=== PATIENT | female | born 1960 | race Caucasian/White ===

== ENCOUNTER 2024-01-23 19:51 | Inpatient (IN) | payer BC, SELFPAY ==
[2024-01-23] VITALS (7 sets, daily range): BP systolic 137–183; BP diastolic 69–83; BMI 26.3; BMI 24.8
[2024-01-23 17:19] LABS: % Basophils 0.5 % (0-2); % Eosinophils 0.6 % (0-6); % Immature Granulocytes 1.3 % (0-0.5); % Lymphocytes 25.5 % (20.5-51.1); % Monocytes 13.8 % (1.7-9.3); % Neutrophils 58.3 % (42.2-75.2); Absolute Eosinophils 0.1 10^3/uL (0-0.7); Absolute Immature Granulocytes 0.1 10^3/uL (0-0.05); Absolute Lymphocytes 2.1 10^3/uL (1.2-3.4); Absolute Monocytes 1.1 10^3/uL (0.1-0.6); Absolute Neutrophils 4.8 10^3/uL (1.4-6.5); Hematocrit 34.5 % (37.0-47.0); Hemoglobin 12.3 g/dL (12.0-16.0); Mean Corp Hgb Conc. 35.7 g/dL (33.0-37.0); Mean Corpuscular Hgb 32.5 pg (27.0-31.0); Mean Corpuscular Volume 91.3 fL (81.0-99.0); Mean Platelet Volume 9.2 fL (7.4-10.4); Nucleated Red Blood Cells % 0 %; Platelet Count 200 10^3/uL (130-400); Red Blood Cell Count 3.78 10^6/uL (4.20-5.40); Red Cell Dist. Width 12.8 % (11.5-14.5); White Blood Cell Count 8.2 10^3/uL (4.8-10.8)
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
[2024-01-23 17:27] LABS: Glucose - Point of Care 52 mg/dl (70-99)
[2024-01-23] MEDS: DEXTROSE 50% SYRINGE 12.5 GRAMS IV (17:28)
[2024-01-23 17:32] LABS: ALT (SGPT) 26 U/L (0-35); AST (SGOT) 41 U/L (14-36); Albumin 4.1 g/dl (3.5-5.0); Alcohol 138 mg/dl; Alkaline Phosphatase 112 U/L (38-126); Blood Urea Nitrogen 13 mg/dl (7-17); Calcium 9.1 mg/dl (8.4-10.2); Carbon Dioxide 22 mmol/L (22-30); Chloride 95 mmol/L (98-107); Estimated Creatinine Clearance 84 ml/min; Glucose 85 mg/dl (70-99); Potassium 3.7 mmol/L (3.5-5.1); Sodium 134 mmol/L (135-145); Total Bilirubin 0.4 mg/dl (0.2-1.3); Total Protein 6.7 g/dl (6.3-8.2); eGFR > 60.00
[2024-01-23] MEDS: D5/0.9% SODIUM CHLORIDE 1000 IV (17:52)
[2024-01-23 18:00] LABS: Glucose - Point of Care 100 mg/dl (70-99)
[2024-01-23 18:21] LABS: Troponin I < 0.012 ng/ml
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
[2024-01-23 20:42] LABS: TSH Reflex To Free T4 3.78 uIU/ml (0.47-4.68)
[2024-01-23 21:20] LABS: Glucose - Point of Care 163 mg/dl (70-99)
[2024-01-23] MEDS: WELLBUTRIN SR (12 hour sustained release) 150 MG PO (22:38)
[2024-01-23] MEDS: MYSOLINE 50 MG PO (22:38)
[2024-01-23] MEDS: DESYREL 50 MG PO (22:38)
[2024-01-23] MEDS: TYLENOL 650 MG PO (23:11)
[2024-01-24] VITALS (8 sets, daily range): BP systolic 121–188; BP diastolic 50–90
--- NOTE | 2024-01-24 00:55 | PTCARENOTE ---
Patient arrived from the ED via stretcher at approximately 2100. Patient ambulated from stretcher to bed x1 assist. Patient AAOx3. VSS as documented. Assessment as documented. Patient oriented to room. Bed in lowest position. Call rivera within reach.
[2024-01-24] MEDS: D5/0.9% SODIUM CHLORIDE 1000 IV ×2 (02:55→09:04)
[2024-01-24] MEDS: TYLENOL 650 MG PO ×2 (06:05→20:20)
[2024-01-24 07:10] LABS: Blood Urea Nitrogen 9 mg/dl (7-17); Calcium 8.4 mg/dl (8.4-10.2); Carbon Dioxide 30 mmol/L (22-30); Chloride 95 mmol/L (98-107); Estimated Creatinine Clearance 75 ml/min; Glucose 333 mg/dl (70-99); Potassium 4.3 mmol/L (3.5-5.1); Sodium 128 mmol/L (135-145); eGFR > 60.00
[2024-01-24 07:45] LABS: Glucose - Point of Care 345 mg/dl (70-99)
[2024-01-24] MEDS: PT'S OWN INSULIN PUMP - HumaLOG 3.33000000000000007 UNIT SC (08:59)
[2024-01-24] MEDS: LIPITOR 20 MG PO (09:02)
[2024-01-24] MEDS: ZOLOFT 200 MG PO (09:02)
[2024-01-24] MEDS: INDERAL LA 160 MG PO (09:02)
[2024-01-24] MEDS: VISBIOME 1 CAP PO (09:02)
[2024-01-24] MEDS: COZAAR 100 MG PO (09:03)
[2024-01-24] MEDS: WELLBUTRIN SR (12 hour sustained release) 150 MG PO ×2 (09:03→20:12)
[2024-01-24] MEDS: THERAGRAN 1 TABLET PO (09:03)
[2024-01-24 09:24] LABS: Glycohemoglobin (HgbA1c) 6.6 % (4.0-5.6)
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
[2024-01-24 11:01] LABS: Glucose - Point of Care 312 mg/dl (70-99)
[2024-01-24] MEDS: PT'S OWN INSULIN PUMP - HumaLOG 0.330000000000000016 UNIT SC (12:30)
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
[2024-01-24 14:18] LABS: Glucose - Point of Care 146 mg/dl (70-99)
--- NOTE | 2024-01-24 15:02 | CM ---
Addendum entered by Meggan Kaufman 01/24/24 15:09:
CM consult for AD literature. Literature provided.
Original Note:
Initial assessment completed with patient with in room. Patient lives with her in a 1 story home plus basement, laundry in basement, 2 steps to enter, Patient has an insulin pump and a continuous glucose monitor, no in-home services
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 Patient works at . Pharmacy is [facility] on [address] in [place] and PCP is Dr. Larissa Smith. Anticipate no needs at discharge. Patient in agreement.
[2024-01-24 15:05] LABS: Glucose - Point of Care 184 mg/dl (70-99)
[2024-01-24 17:34] LABS: Glucose - Point of Care 214 mg/dl (70-99)
[2024-01-24] MEDS: ULTRAM 25 MG PO (17:34)
[2024-01-24] MEDS: LOVENOX 40 MG SC (17:34)
[2024-01-24] MEDS: PT'S OWN INSULIN PUMP - HumaLOG 2.5 UNIT SC (17:46)
[2024-01-24 18:50] LABS: Osmolality Urine 304 mOsm/kg (300-900)
[2024-01-24 21:34] LABS: Glucose - Point of Care 200 mg/dl (70-99)
[2024-01-24] MEDS: DESYREL 50 MG PO (21:39)
[2024-01-24] MEDS: MYSOLINE 50 MG PO (21:39)
[2024-01-24] MEDS: PT'S OWN INSULIN PUMP - HumaLOG 1.01000000000000001 UNIT SC (21:53)
[2024-01-24] MEDS: LIDOCAINE 4% PATCH 1 PATCH TOPICAL (21:59)
[2024-01-24] MEDS: MOTRIN 400 MG PO (21:59)
[2024-01-24 23:27] LABS: Glucose - Point of Care 150 mg/dl (70-99)
--- NOTE | 2024-01-24 23:35 | PTCARENOTE ---
Addendum entered by Sejal Philippe RN 01/25/24 06:32:
0614 BSG 125 w/ hospital monitor. Pt's insulin pump reads 115
Original Note:
Pt's spouse called nurses station to inform us that pt's insulin pump alarmed a reading in the 50s. RN checked bsg w/ hospital glucose monitor resulting 150. Pt's insulin pump resulted 70. Patient states insulin pump checks glucose Q8H. Patient's
pump administered insulin around 2200. This RN will recheck at 0600.
[2024-01-25 03:49] VITALS: BP 149/73
[2024-01-25] MEDS: ULTRAM 25 MG PO (06:17)
[2024-01-25 06:18] LABS: Glucose - Point of Care 125 mg/dl (70-99)
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
[2024-01-25 07:27] LABS: % Basophils 0.6 % (0-2); % Eosinophils 2.5 % (0-6); % Immature Granulocytes 0.3 % (0-0.5); % Lymphocytes 30.2 % (20.5-51.1); % Monocytes 10.4 % (1.7-9.3); Absolute Eosinophils 0.2 10^3/uL (0-0.7); Absolute Monocytes 0.7 10^3/uL (0.1-0.6); Absolute Neutrophils 3.7 10^3/uL (1.4-6.5); Hematocrit 33.3 % (37.0-47.0); Hemoglobin 11.6 g/dL (12.0-16.0); Mean Corp Hgb Conc. 34.8 g/dL (33.0-37.0); Mean Corpuscular Hgb 32.2 pg (27.0-31.0); Mean Corpuscular Volume 92.5 fL (81.0-99.0); Mean Platelet Volume 9.6 fL (7.4-10.4); Nucleated Red Blood Cells % 0 %; Platelet Count 163 10^3/uL (130-400); Red Cell Dist. Width 12.6 % (11.5-14.5); White Blood Cell Count 6.5 10^3/uL (4.8-10.8)
[2024-01-25 07:30] VITALS: BP 178/75
[2024-01-25 07:35] LABS: Glucose - Point of Care 142 mg/dl (70-99)
[2024-01-25 08:06] LABS: Blood Urea Nitrogen 8 mg/dl (7-17); Calcium 8.9 mg/dl (8.4-10.2); Carbon Dioxide 32 mmol/L (22-30); Chloride 94 mmol/L (98-107); Estimated Creatinine Clearance 75 ml/min; Glucose 121 mg/dl (70-99); Potassium 3.8 mmol/L (3.5-5.1); Sodium 131 mmol/L (135-145); eGFR > 60.00
[2024-01-25] MEDS: LIPITOR 20 MG PO (09:54)
[2024-01-25] MEDS: COZAAR 100 MG PO (09:54)
[2024-01-25] MEDS: WELLBUTRIN SR (12 hour sustained release) 150 MG PO (09:54)
[2024-01-25] MEDS: ZOLOFT 200 MG PO (09:54)
[2024-01-25] MEDS: VISBIOME 1 CAP PO (09:56)
[2024-01-25] MEDS: THERAGRAN 1 TABLET PO (09:56)
[2024-01-25] MEDS: LIDOCAINE 4% PATCH 1 PATCH TOPICAL (09:56)
[2024-01-25] MEDS: INDERAL LA 160 MG PO (09:56)
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
[2024-01-25 10:08] LABS: Glucose - Point of Care 121 mg/dl (70-99)
[2024-01-25] MEDS: PT'S OWN INSULIN PUMP - HumaLOG 2.33000000000000007 UNIT SC (11:33)
[2024-01-25 11:51] VITALS: BP 157/82
[2024-01-25 13:22] LABS: Glucose - Point of Care 263 mg/dl (70-99)
[2024-01-25] MEDS: PT'S OWN INSULIN PUMP - HumaLOG 4.42999999999999972 UNIT SC (14:05)
--- NOTE | 2024-01-25 14:12 | W.DS.TRANS ---
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
-
Discharge Instructions:
Discharge Diagnosis/Procedures Syncopal, near drawing episode.
Aortic stenosis
IDDM
HTN
Essential tremor.
Diet Diabetic, Carb Controlled
Instructions:
Stand-Alone Forms: Return to Work
Changes to Home Medications: Yes
Discharge Medications:
DC Medications w/original date entered in [employer]
losartan 50 mg tablet 100 mg PO DAILY 07/30/15
Lactobac no.2-Bifidobac no.1-S. thermo 112.5 billion cell capsule (Visbiome) 1 cap PO DAILY 03/08/17
sertraline 100 mg tablet 200 mg PO DAILY 03/08/17
trazodone 50 mg tablet 50 mg PO HS 03/08/17
multivitamin 1 tab PO DAILY 05/21/22
Patient Own Insulin Pump 0 unit SC .VIA PUMP 01/23/24
atorvastatin 20 mg tablet (Lipitor) 20 mg PO DAILY 01/23/24
bupropion HCl 150 mg tablet,12 hr sustained-release (Wellbutrin SR) 150 mg PO BID 01/23/24
propranolol 160 mg capsule,24 hr,extended release 160 mg PO DAILY 01/23/24
acetaminophen 325 mg tablet 650 mg (2 x 325 mg) PO Q4HPRN PRN mild pain/ fever>100.5F #30 tabs 01/25/24
lidocaine 4 % topical patch 1 patch topical DAILY #15 ea 01/25/24
Home Medication Changes
Primidone discontinued
Pending Results: No
--- NOTE | 2024-01-25 14:21 | CM ---
Plan: discharge to home; no needs; will transport home
[2024-01-25 15:14] VITALS: BP 146/61
--- NOTE | 2024-01-25 15:43 | PTCARENOTE ---
Patient discharged home. Telemetry pack and IV removed by RN, this RN reviewed discharge instructions with patient and patient's spouse; both verbalized understanding. Patient dressed and gathered belongings independently in room, work note provided
per MD, patient ambulated down to car with spouse.
== END 2024-01-25 15:51 | disposition home or self-care (01) | DRG 637 ==
LOC: 2 NORTH 19:51
PROVIDERS: Emergency Medicine; Registered Nurse; ADMITTING PHYSICIAN Internal Medicine; ATTENDING PHYSICIAN Internal Medicine; CONSULT PHYSICIAN Internal Medicine Cardiovascular Disease; EMERGENCY PHYSICIAN Emergency Medicine; FAMILY PHYSICIAN Emergency Medicine; OTHER PHYSICIAN Psychiatry & Neurology Psychiatry
DX: E10.649 Type 1 diabetes mellitus with hypoglycemia without coma (principal); R09.2 Respiratory arrest; T75.1XXA Unspecified effects of drowning and nonfatal submersion, initial encounter; R55 Syncope and collapse; R23.0 Cyanosis; G25.0 Essential tremor; I10 Essential (primary) hypertension; E78.00 Pure hypercholesterolemia, unspecified; F32.A Depression, unspecified; I35.0 Nonrheumatic aortic (valve) stenosis; F10.90 Alcohol use, unspecified, uncomplicated; Y90.6 Blood alcohol level of 120-199 mg/100 ml; Y93.11 Activity, swimming; Y92.008 Other place in unspecified non-institutional (private) residence as the place of occurrence of the external cause; Z96.41 Presence of insulin pump (external) (internal); Z79.4 Long term (current) use of insulin; Z87.891 Personal history of nicotine dependence; Z91.52 Personal history of nonsuicidal self-harm
CPT/HCPCS: 70450; 71046; 71110; 80048; 80053; 82077; 82962; 83036; 83935; 84443; 84484; 85025; 93005; 93306; 93880; 96374; 99285

== ENCOUNTER → 2024-02-01 16:07 | Outpatient (REF) | payer BC, SELFPAY ==
[2024-02-01 16:42] LABS: D-Dimer 2.44 ug/mlFEU (0.00-0.50)
[2024-02-01 16:43] LABS: Blood Urea Nitrogen 14 mg/dl (7-17); Calcium 9.7 mg/dl (8.4-10.2); Carbon Dioxide 28 mmol/L (22-30); Chloride 100 mmol/L (98-107); Glucose 144 mg/dl (70-99); Potassium 4.1 mmol/L (3.5-5.1); Sodium 136 mmol/L (135-145); eGFR > 60.00
== END ==
LOC: REG 16:07
PROVIDERS: ATTENDING PHYSICIAN Emergency Medicine
DX: R06.02 Shortness of breath (principal); R07.89 Other chest pain; E87.1 Hypo-osmolality and hyponatremia
CPT/HCPCS: 36415; 80048; 85379

== ENCOUNTER → 2024-02-02 07:19 | Outpatient (REF) | payer BC, SELFPAY | LOC: RAD 07:19 | PROVIDERS: ATTENDING PHYSICIAN Emergency Medicine | DX: R06.02 Shortness of breath (principal); R07.89 Other chest pain; R79.89 Other specified abnormal findings of blood chemistry | CPT/HCPCS: 71275; Q9967 ==

== ENCOUNTER 2024-02-02 10:12 | Emergency (ER) | payer BC, SELFPAY ==
[2024-02-02 10:26] VITALS: BP 189/70
[2024-02-02 10:45] VITALS: BP 176/83
[2024-02-02 11:00] VITALS: BP 178/62
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
== END 2024-02-02 11:22 | disposition home or self-care (01) ==
LOC: EMR 10:12
PROVIDERS: EMERGENCY PHYSICIAN Emergency Medicine; FAMILY PHYSICIAN Emergency Medicine
DX: S22.41XA Multiple fractures of ribs, right side, initial encounter for closed fracture (principal); J90 Pleural effusion, not elsewhere classified; X58.XXXA Exposure to other specified factors, initial encounter; I10 Essential (primary) hypertension; E78.00 Pure hypercholesterolemia, unspecified; E11.9 Type 2 diabetes mellitus without complications; Z87.891 Personal history of nicotine dependence
CPT/HCPCS: 99285; 71275; Q9967

== ENCOUNTER → 2024-04-13 07:00 | Outpatient (REF) | payer BC, SELFPAY ==
[2024-04-13 10:27] LABS: Blood Urea Nitrogen 16 mg/dl (7-17); Calcium 9.9 mg/dl (8.4-10.2); Carbon Dioxide 33 mmol/L (22-30); Chloride 96 mmol/L (98-107); Glucose 99 mg/dl (70-99); HDL Cholesterol 102 mg/dl; LDL Cholesterol, Calculated 92 mg/dl; Sodium 139 mmol/L (135-145); Total Cholesterol 213 mg/dl (50-199); Triglyceride 98 mg/dl (10-149); Very Low Density Lipoprotein 19 mg/dl (0-30); eGFR > 60.00
== END ==
LOC: REG 07:00
PROVIDERS: ATTENDING PHYSICIAN Emergency Medicine
DX: Z00.00 Encounter for general adult medical examination without abnormal findings (principal); E78.5 Hyperlipidemia, unspecified; E10.69 Type 1 diabetes mellitus with other specified complication; I10 Essential (primary) hypertension
CPT/HCPCS: 36415; 80048; 80061

== ENCOUNTER → 2024-06-07 16:27 | Outpatient (REF) | payer BC, SELFPAY | LOC: RAD 16:27 | PROVIDERS: ATTENDING PHYSICIAN Internal Medicine Cardiovascular Disease; FAMILY PHYSICIAN Emergency Medicine | DX: I35.0 Nonrheumatic aortic (valve) stenosis (principal); Q23.81 Bicuspid aortic valve | CPT/HCPCS: 71250 ==

== ENCOUNTER 2024-06-23 21:50 | Emergency (ER) | payer BC, SELFPAY ==
[2024-06-23 21:59] VITALS: BMI 25.1
[2024-06-23 22:00] VITALS: BP 201/97; BP 212/83
[2024-06-23 22:18] LABS: % Basophils 0.4 % (0-2); % Eosinophils 0.9 % (0-6); % Immature Granulocytes 0.4 % (0-0.5); % Monocytes 14.4 % (1.7-9.3); % Neutrophils 51.9 % (42.2-75.2); Absolute Eosinophils 0.1 10^3/uL (0-0.7); Absolute Lymphocytes 2.9 10^3/uL (1.2-3.4); Absolute Monocytes 1.3 10^3/uL (0.1-0.6); Absolute Neutrophils 4.6 10^3/uL (1.4-6.5); Hematocrit 40.6 % (37.0-47.0); Hemoglobin 13.3 g/dL (12.0-16.0); Mean Corp Hgb Conc. 32.8 g/dL (33.0-37.0); Mean Corpuscular Hgb 32.3 pg (27.0-31.0); Mean Corpuscular Volume 98.5 fL (81.0-99.0); Mean Platelet Volume 9.4 fL (7.4-10.4); Nucleated Red Blood Cells % 0 %; Platelet Count 209 10^3/uL (130-400); Red Blood Cell Count 4.12 10^6/uL (4.20-5.40); Red Cell Dist. Width 13.2 % (11.5-14.5)
--- NOTE | 2024-06-23 22:26 | ED.GENMED ---
History of Present Illness
<Nasreen Mora MD, Resident - Last Filed: 06/24/24 02:52>
General
Chief Complaint: Fall
Source: patient and family
Time Seen by Provider: 06/23/24 22:15
History of Present Illness
History of Present Illness:
This is a 64-year-old female patient with past medical history of hypertension, hyperlipidemia, depression and NIDDM who presented to the ED with her after suffering a fall. Patient states that she was out with her at a restaurant
this evening when after having 2 martinis she decided to step out of the restaurant to vape. She then states that she will awoke on the ground and cannot recall a prior events to fall. As per , someone from the restaurant had noticed her on
the ground and informed him that he then brought patient to the ED hospital. Patient denies over drinking or having trouble walking at the time of examination. She denies any chest pain, palpitations, severe headache or vision changes.
History obtained mostly from and nurse due to patient being unable to recall the events of her fall.
Past History
<Nasreen Mora MD, Resident - Last Filed: 06/24/24 02:52>
Past History
ED Past Medical History: HTN, Hypercholesterolemia and IDDM (Insulin pump)
ED Past Surgical History: , Orthopedic and Tonsilectomy
Social History
Tobacco: Former smoker
Alcohol: Occasional
Drug: None
Personal:
Living: with family
Employment: Employed
Family History
Family History: Other (nc)
Review of Systems
<Nasreen Mora MD, Resident - Last Filed: 06/24/24 02:52>
Review of Systems
Constitutional: Denies fever or chills
Respiratory: Denies cough
Cardiac: Denies chest pain or palpitations
ABD/GI: Denies abdominal pain, nausea or vomiting
Neurological: Denies dizzy or headache
Phy Exam
<Nasreen Mora MD, Resident - Last Filed: 06/24/24 02:52>
General Physical Exam
General Presentation: no apparent distress and other (Bruising and small laceration present on right side of face)
General Mental: appears intoxicated and confused
Eye Exam
Eye Exam: EOMI and conjunctiva normal
Cardiovascular Exam
Cardiovascular Exam: regular rate/rhythm and no murmur
Heart Sounds: normal
Pulmonary Exam
Pulmonary Exam: lungs clear and no crackles
Gastrointestinal Exam
Gastrointestinal Exam: non tender, soft and non distended
Neurological Exam
Neurological Exam: oriented x3, speech normal, abnormal gait (Unsteady) and confused
Musculoskeletal Exam
Musculoskeletal Exam: edema
Skin Exam
Skin Exam: laceration (Bruising and laceration on right side of face)
Psychiatric Exam
Psychiatric Exam: normal mood/affect
Course
<Nasreen Mora MD, Resident - Last Filed: 06/24/24 02:52>
Orders/Labs/Results
Orders:
Orders
06/23/24 22:04
Alcohol Urgent
Basic Metabolic Panel Urgent
Complete Blood Count/With Diff Urgent
06/23/24 22:23
EKG [Electrocardiogram (*1)] Urgent
Reason for Study: Syncope
EKG- Treatment ONCE
06/23/24 22:46
Cardiac Monitoring- Treatment ONCE
06/24/24 00:00
CT Cervical Spine W/o Iv Contr Urgent
Reason For Exam: head trauma, fall
CT Facial Bones W/o Iv Contras Urgent
Reason For Exam: head trauma, fall
CT Head W/o Iv Contrast Urgent
Reason For Exam: head trauma, unsteady gait
06/24/24 01:07
Add On- LAB Urgent
Tests Added?: alcohol
06/24/24 01:11
CR Elbow - Right Min 3 Views Urgent
Comment:
Reason For Exam: injury
Abnormal Lab Results
06/23/24
22:04
RBC 4.12 L 10^6/uL
(4.20-5.40)
MCH 32.3 H pg
(27.0-31.0)
MCHC 32.8 L g/dL
(33.0-37.0)
Absolute Monos (auto) 1.3 H 10^3/uL
(0.1-0.6)
Monocytes % 14.4 H %
(1.7-9.3)
Sodium 134 L mmol/L
(135-145)
Carbon Dioxide 21 L mmol/L
(22-30)
Glucose 110 H mg/dl
(70-99)
06/23/24 22:04
06/23/24 22:04
Vital Signs
Initial and Last Documented VS:
Initial Vital Signs
Temp Pulse Resp Pulse Ox
97.9 F 58 18 97
06/23/24 21:52 06/23/24 21:52 06/23/24 21:52 06/23/24 21:52
Last Documented Vital Signs
Temp Pulse Resp BP Pulse Ox
97.9 F 62 13 167/76 98
06/23/24 21:52 06/24/24 02:09 06/24/24 02:09 06/24/24 01:00 06/24/24 02:09
Laxmilt;Parish Garland, DO - Last Filed: 06/24/24 01:17>
Orders/Labs/Results
Orders:
Orders
06/23/24 22:04
Alcohol Urgent
Basic Metabolic Panel Urgent
Complete Blood Count/With Diff Urgent
06/23/24 22:23
EKG [Electrocardiogram (*1)] Urgent
Reason for Study: Syncope
EKG- Treatment ONCE
06/23/24 22:46
Cardiac Monitoring- Treatment ONCE
06/24/24 00:00
CT Cervical Spine W/o Iv Contr Urgent
Reason For Exam: head trauma, fall
CT Facial Bones W/o Iv Contras Urgent
Reason For Exam: head trauma, fall
CT Head W/o Iv Contrast Urgent
Reason For Exam: head trauma, unsteady gait
06/24/24 01:07
Add On- LAB Urgent
Tests Added?: alcohol
06/24/24 01:11
CR Elbow - Right Min 3 Views Urgent
Comment:
Reason For Exam: injury
Abnormal Lab Results
06/23/24
22:04
RBC 4.12 L 10^6/uL
(4.20-5.40)
MCH 32.3 H pg
(27.0-31.0)
MCHC 32.8 L g/dL
(33.0-37.0)
Absolute Monos (auto) 1.3 H 10^3/uL
(0.1-0.6)
Monocytes % 14.4 H %
(1.7-9.3)
Sodium 134 L mmol/L
(135-145)
Carbon Dioxide 21 L mmol/L
(22-30)
Glucose 110 H mg/dl
(70-99)
06/23/24 22:04
06/23/24 22:04
Vital Signs
Initial and Last Documented VS:
Initial Vital Signs
Temp Pulse Resp Pulse Ox
97.9 F 58 18 97
06/23/24 21:52 06/23/24 21:52 06/23/24 21:52 06/23/24 21:52
Last Documented Vital Signs
Temp Pulse Resp BP Pulse Ox
97.9 F 62 13 167/76 98
06/23/24 21:52 06/24/24 02:09 06/24/24 02:09 06/24/24 01:00 06/24/24 02:09
<Parish Garland, DO - Last Filed: 06/24/24 01:17>
*Critical Care Note
Total Time (30-74mins, 75-104mins- exclusive of procedures): 31 min
comment:
The high probability of a clinically significant, sudden or life threatening deterioration of the neurovascular system(s) required my full and direct attention, intervention and personal management. The aggregate critical care time was 31 minutes.
This time is in addition to time spent performing reported procedures but includes the following:
[x] Data Review and interpretation
[x] Patient assessment and monitoring of vital signs
[x] Documentation
[x] Medication orders and management
<Nasreen Mora MD, Resident - Last Filed: 06/24/24 02:52>
Update Note
Update Note:
CT head and neck ordered. Patient unsteady and required 2 person assist for bathroom. EKG without findings of arrhythmia. Imaging with results of small subdural hematoma and fractures of facial bones. Patient to be transferred to [place] for
further care.
<Parish Garland, DO - Last Filed: 06/24/24 01:17>
Update Note
Update Note:
CT head and neck ordered. Patient unsteady and required 2 person assist for bathroom. EKG without findings of arrhythmia.
1 AM vision radiology called indicating small subdural hemorrhage and right nasal bone fracture. Given the intracranial hemorrhage, will transfer to trauma center
1:05 AM Case discussed with [place] trauma surgeon Dr. Ren who accepted patient. After discussing case with trauma surgeon and based on no cervical fractures and no cervical tenderness, c-collar not required
ED Attending Note
<Nasreen Mora MD, Resident - Last Filed: 06/24/24 02:52>
-
Portions of this chart may have been created with voice recognition software.� Occasional wrong word or��sound alike� substitutions may have occurred due to the inherent limitations of voice recognition software.
<Parish Garland, DO - Last Filed: 06/24/24 01:17>
ED Attending Note
Patient seen and examined by attending physician: Yes
I performed a history and physical exam of patient and discussed management with resident, I reviewed resident's note and agree with documented findings and plan of care.: Yes
ED Attending Note:
I have seen and evaluated the patient with a [id number] encounter. I have spoken to the resident and involved in the medical history, the physical exam, medical decision making.
Evaluation and management service: agree unless noted differently below.
Results interpretation: agree unless noted differently below.
Focused HPI: 64-year-old female presenting with a fall. Patient was at dinner and admits to multiple alcoholic drinks. She went outside to vape and she believes she tripped. Patient has small abrasion to her right face. Patient denies any
headache. She has multiple abrasions to her face and her elbow but denies any bony tenderness.
Physical exam: Sitting in bed comfortably. Mildly intoxicated. Pupils equal reactive. Small abrasion noted to right face with controlled bleeding. Small abrasion to right elbow without bony tenderness. Neck supple
Medical Decision Making: Given the trauma while intoxicated, will obtain CT head, neck and maxillofacial. EKG without evidence of arrhythmia or active ischemia. Blood work without clinical relevance.
Discharge Plan
Departure
Patient Disposition: Acute Care Hospital
Date of Disposition: 06/24/24
Time of Disposition: 01:15
Discharge Problem:
Subdural hematoma, Fracture of nasal bone, Facial bone fracture
Prescriptions:
No Action
trazodone 50 MG tablet
50 mg PO HSPRN PRN (Reason: sleep)
sertraline 100 MG tablet
200 mg PO DAILY
Visbiome 112.5 billion cell Capsule
1 cap PO DAILY
multivitamin Tablet
1 tab PO DAILY
bupropion HCl [Wellbutrin SR] 150 mg Tablet Sustained-Release 12 Hr
150 mg PO BID
propranolol 160 mg Capsule,Extended Release 24 Hr
160 mg PO DAILY
atorvastatin [Lipitor] 20 mg Tablet
20 mg PO DAILY
Patient Own Insulin Pump
0 unit SC .VIA PUMP
Patient Comments:
02/02/2024, pt. currently using Humalog (Insulin Lispro) 100 unit/ml solution; pt. changes her insulin Q72H; pt. states to use between 30-40 units a day on average and replaces insulin when she has roughly 50 units remaining; pt. due to change
her insulin today (last changed on Wednesday01/30/2024).
oxycodone-acetaminophen [Percocet] 5-325 mg tablet
1 tab PO Q6HPRN PRN (Reason: pain) Qty: 5 0RF
losartan 100 mg Tablet
100 mg PO DAILY
Referrals:
Larissa Smith MD [Family Provider] -
Hospital Transfer
Other hospital: [facility]
I certify that the patient requires transfer: Yes
Discussed case with accepting physician: Dr. Ren
Reason for transfer: higher level of care and specialties available
Interventions
Interventions:
*Risk Screen - Suicide Last Done: 06/23/24 21:52
*General Assessment Last Done: 06/23/24 21:52
*Neglect/Abuse Screening Last Done: 06/23/24 21:52
ED- Fall Risk Assessment Last Done: 06/23/24 21:52
*ED COVID-19 Vaccine History Last Done: 06/24/24 02:22
*Nursing Disposition Last Done: 06/24/24 02:22
ED-Musculoskeletal Assessment Last Done: 06/23/24 22:01
ED- Neurological Assessment Last Done: 06/23/24 22:00
ED-Skin Assessment Last Done: 06/23/24 22:23
Discharge Date and Time
Discharge Date/Time: 06/24/24 02:24
Print Language: FRENCH
[2024-06-23 22:40] LABS: Blood Urea Nitrogen 14 mg/dl (7-17); Calcium 9.1 mg/dl (8.4-10.2); Carbon Dioxide 21 mmol/L (22-30); Chloride 99 mmol/L (98-107); Estimated Creatinine Clearance 74 ml/min; Glucose 110 mg/dl (70-99); Sodium 134 mmol/L (135-145); eGFR > 60.00
[2024-06-23 23:00] VITALS: BP 174/87
[2024-06-24 01:00] VITALS: BP 167/76
[2024-06-24 01:33] LABS: Alcohol 203 mg/dl
== END 2024-06-24 02:24 | disposition short-term general hospital (02) ==
LOC: EMR 21:50
PROVIDERS: EMERGENCY PHYSICIAN Student in an Organized Health Care Education/Training Program; FAMILY PHYSICIAN Emergency Medicine
DX: S06.5XAA Traumatic subdural hemorrhage with loss of consciousness status unknown, initial encounter (principal); S02.2XXA Fracture of nasal bones, initial encounter for closed fracture; S02.831A Fracture of medial orbital wall, right side, initial encounter for closed fracture; W19.XXXA Unspecified fall, initial encounter; I10 Essential (primary) hypertension; E78.00 Pure hypercholesterolemia, unspecified; E11.9 Type 2 diabetes mellitus without complications; Z79.4 Long term (current) use of insulin; Z96.41 Presence of insulin pump (external) (internal); Z87.891 Personal history of nicotine dependence
CPT/HCPCS: 99291; 70450; 70486; 72125; 73080; 80048; 82077; 85025; 93005

== ENCOUNTER → 2024-07-11 11:15 | Outpatient (REF) | payer BC, SELFPAY ==
[2024-07-11 12:35] LABS: Microalbumin, Random Urine 3.9 mg/dl (0.6-1.7); Microalbumin/creatinine Ratio 19.7 mg/g
[2024-07-11 12:47] LABS: ALT (SGPT) 33 U/L (0-35); AST (SGOT) 36 U/L (14-36); Albumin 4.1 g/dl (3.5-5.0); Alkaline Phosphatase 194 U/L (38-126); Blood Urea Nitrogen 12 mg/dl (7-17); Calcium 9.5 mg/dl (8.4-10.2); Carbon Dioxide 28 mmol/L (22-30); Chloride 103 mmol/L (98-107); Glucose 88 mg/dl (70-99); Potassium 4.2 mmol/L (3.5-5.1); Sodium 140 mmol/L (135-145); Total Bilirubin 0.6 mg/dl (0.2-1.3); Total Protein 6.9 g/dl (6.3-8.2); eGFR > 60.00
[2024-07-11 13:18] LABS: TSH 1.56 uIU/ml (0.47-4.68)
== END ==
LOC: REG 11:15
PROVIDERS: ATTENDING PHYSICIAN Internal Medicine Endocrinology, Diabetes & Metabolism; FAMILY PHYSICIAN Emergency Medicine
DX: E10.9 Type 1 diabetes mellitus without complications (principal)
CPT/HCPCS: 36415; 80053; 82043; 82570; 84443

== ENCOUNTER → 2024-07-24 15:55 | Outpatient (REF) | payer BC, SELFPAY | LOC: RCS 15:55 | PROVIDERS: ATTENDING PHYSICIAN Nurse Practitioner; FAMILY PHYSICIAN Emergency Medicine | DX: R55 Syncope and collapse (principal); Q23.81 Bicuspid aortic valve | CPT/HCPCS: 93306 ==

== ENCOUNTER 2024-07-31 13:46 | Outpatient (RCR) | payer BC, SELFPAY | END 2024-07-31 23:59 | disposition home or self-care (01) | LOC: ROT 13:46 | PROVIDERS: ATTENDING PHYSICIAN Physical Medicine & Rehabilitation; FAMILY PHYSICIAN Internal Medicine | DX: S06.5X0D Traumatic subdural hemorrhage without loss of consciousness, subsequent encounter (principal); M25.521 Pain in right elbow; W19.XXXD Unspecified fall, subsequent encounter; Z73.6 Limitation of activities due to disability | CPT/HCPCS: 96125; 97110; 97112; 97116; 97129; 97130; 97163; 97167; 97530; 97535; 97537 ==

== ENCOUNTER → 2024-08-23 11:05 | Outpatient (REF) | payer BC, SELFPAY | LOC: HWRAD 11:05 | PROVIDERS: ATTENDING PHYSICIAN Neurological Surgery; FAMILY PHYSICIAN Emergency Medicine | DX: S06.5XAA Traumatic subdural hemorrhage with loss of consciousness status unknown, initial encounter (principal) | CPT/HCPCS: 70450 ==

== ENCOUNTER → 2024-08-23 15:36 | Outpatient (REF) | payer BC, SELFPAY ==
[2024-08-24 17:22] LABS: Urine Albumin Trace (Neg - Trace); Urine Bilirubin Negative (Negative); Urine Character Clear (Clear); Urine Color Yellow; Urine Glucose Negative (Negative); Urine Ketone Negative (Negative); Urine Leukocyte 2+ (Negative); Urine Nitrite Positive (Negative); Urine Occult Blood Trace (Negative); Urine Urobilinogen Negative (Neg - 1+)
[2024-08-24 17:47] LABS: Urine Squamous Cell 0-2 /LPF (Few)
[2024-08-24 17:48] LABS: Urine Bacteria Many (Negative); Urine Red Blood Cell 0-2 /HPF (0-2); Urine White Cell 50-60 /HPF (0-5)
== END ==
LOC: CLAB 15:36
PROVIDERS: ATTENDING PHYSICIAN Nurse Practitioner
DX: N39.0 Urinary tract infection, site not specified (principal)
CPT/HCPCS: 81003; 81015; 87077; 87086

== ENCOUNTER 2024-09-01 09:58 | Outpatient (RCR) | payer BC, SELFPAY | END 2024-09-01 23:59 | disposition home or self-care (01) | LOC: ROT 09:58 | PROVIDERS: ATTENDING PHYSICIAN Physical Medicine & Rehabilitation; FAMILY PHYSICIAN Internal Medicine | DX: S06.5X0D Traumatic subdural hemorrhage without loss of consciousness, subsequent encounter (principal); M25.521 Pain in right elbow; W19.XXXD Unspecified fall, subsequent encounter; Z73.6 Limitation of activities due to disability | CPT/HCPCS: 97110; 97112; 97116; 97129; 97130; 97530; 97537 ==

== ENCOUNTER 2024-09-13 14:31 | Outpatient (RCR) | payer BC, SELFPAY | END 2024-09-13 23:59 | disposition home or self-care (01) | LOC: ROT 14:31 | PROVIDERS: ATTENDING PHYSICIAN Physical Medicine & Rehabilitation; FAMILY PHYSICIAN Internal Medicine | DX: S06.5X0D Traumatic subdural hemorrhage without loss of consciousness, subsequent encounter (principal); M25.521 Pain in right elbow; R41.841 Cognitive communication deficit; W19.XXXD Unspecified fall, subsequent encounter; R41.89 Other symptoms and signs involving cognitive functions and awareness; Z73.6 Limitation of activities due to disability; R41.844 Frontal lobe and executive function deficit; R26.89 Other abnormalities of gait and mobility; W18.39XD Other fall on same level, subsequent encounter | CPT/HCPCS: 97110; 97112; 97129; 97130; 97530; 97537 ==

== ENCOUNTER → 2024-12-01 08:03 | Outpatient (REF) | payer BC, SELFPAY | LOC: RCS 08:03 | PROVIDERS: ATTENDING PHYSICIAN Internal Medicine Cardiovascular Disease; FAMILY PHYSICIAN Emergency Medicine | DX: I10 Essential (primary) hypertension (principal); R06.02 Shortness of breath; R00.1 Bradycardia, unspecified | CPT/HCPCS: 93306 ==

== ENCOUNTER → 2025-01-03 16:16 | Outpatient (REF) | payer BC, SELFPAY ==
[2025-01-03 17:17] LABS: % Basophils 0.3 % (0-2); % Eosinophils 0.7 % (0-6); % Immature Granulocytes 0.1 % (0-0.5); % Lymphocytes 29.7 % (20.5-51.1); % Monocytes 13.1 % (1.7-9.3); % Neutrophils 56.1 % (42.2-75.2); Absolute Eosinophils 0.1 10^3/uL (0-0.7); Absolute Lymphocytes 2.2 10^3/uL (1.2-3.4); Absolute Neutrophils 4.1 10^3/uL (1.4-6.5); Hematocrit 38.7 % (37.0-47.0); Hemoglobin 12.9 g/dL (12.0-16.0); Mean Corp Hgb Conc. 33.3 g/dL (33.0-37.0); Mean Corpuscular Hgb 31.6 pg (27.0-31.0); Mean Corpuscular Volume 94.9 fL (81.0-99.0); Mean Platelet Volume 9.5 fL (7.4-10.4); Nucleated Red Blood Cells % 0 %; Platelet Count 225 10^3/uL (130-400); Red Blood Cell Count 4.08 10^6/uL (4.20-5.40); Red Cell Dist. Width 13.9 % (11.5-14.5); White Blood Cell Count 7.3 10^3/uL (4.8-10.8)
[2025-01-03 17:37] LABS: Blood Urea Nitrogen 16 mg/dl (7-17); Calcium 9.5 mg/dl (8.4-10.2); Carbon Dioxide 27 mmol/L (22-30); Chloride 107 mmol/L (98-107); Glucose 172 mg/dl (70-99); Phosphorus 3.6 mg/dl (2.5-4.5); Potassium 4.4 mmol/L (3.5-5.1); Sodium 139 mmol/L (135-145); eGFR > 60.00
== END ==
LOC: REG 16:16
PROVIDERS: ATTENDING PHYSICIAN Internal Medicine Cardiovascular Disease; FAMILY PHYSICIAN Emergency Medicine
DX: R55 Syncope and collapse (principal); I35.0 Nonrheumatic aortic (valve) stenosis
CPT/HCPCS: 36415; 80069; 85025

== ENCOUNTER 2025-01-05 06:37 | Day surgery (SDC) | payer BC, MEDICARE, SELFPAY ==
[2025-01-05] VITALS (8 sets, daily range): BP systolic 126–193; BP diastolic 60–95; BMI 22.3
[2025-01-05] MEDS: LOW STRENGTH ASPIRIN 324 MG PO (07:23)
[2025-01-05 07:51] LABS: Glucose - Point of Care 53 mg/dl (70-99)
[2025-01-05 08:30] LABS: Glucose - Point of Care 111 mg/dl (70-99)
--- NOTE | 2025-01-05 09:17 | ITS.CL.PN ---
Operations/Dispatch - Procedure Note
Procedure
Procedure Note:
CARDIAC CATHETERIZATION REPORT
Date of Procedure: 01/05/2025
Referring: Dr. Elzbieta Ruelas MD
Indication: severe symptomatic aortic stenosis
PROCEDURE(S)
1. right heart catheterization
2. left heart catheterization
3. coronary angiography
ACCESS
1. 6F right radial artery (closure: radial band)
2. 5F right antecubital vein (closure: manual hemostasis)
CATHETERS
1. 5F Hershey-Vazquez
2. 6F JR4
3. 6F JL3.5
MODERATE SEDATION: 30 minutes of moderate sedation was utilized. An independent medical screener was present to assist with and help manage the patient's level of consciousness and physiologic status.
HEMODYNAMIC DATA
LV 194/18 (EDP 23) mmHg
AO 117/73 (mean 160) mmHg
RA 15 mmHg
RV 57/9 (EDP 16) mmHg
PA 56/24 (mean 37) mmHg
PCWP 27 mmHg
SaO2 91.2 %
SvO2 68.5%
Hb 13.5 g/dL
CO/CI 4.53/3.00 L/min/m2
SVR 1784 dsc*-5
PVR 2.2 Wood units
Valve study: Mean gradient 27.82 with heart rate of 60 bpm giving stroke volume index of 50 mL/m2 and calculated ABDIEL of 0.86 cm2 (indexed valve area 0.57 cm2/m2)
CORONARY ANGIOGRAPHY
Dominance: Right
LM: Cloacal
LAD: large vessel giving rise to several small diagonal branches. There are trivial luminal irregularities only.
LCx: large vessel giving rise to a moderate caliber OM1 and small OM2. There are trivial luminal irregularities only.
RCA: moderate caliber vessel giving rise to a small RPDA and small RPL branch. There is a long 40-50% stenosis in the mid-vessel and otherwise mild luminal irregularities.
RADIATION: dose to 59 mGy; DAP 22.9 Gy*cm2; fluoroscopy time 8.0 min
CONCLUSIONS
1. Nonobstructive coronary artery disease in right dominant system.
2. Elevated biventricular filling pressures, moderate predominantly post capillary pulmonary hypertension, and normal cardiac index
2. Normal flow, low gradient severe aortic stenosis.
RECOMMENDATIONS
1. Continue workup for AVR (SAVR vs. TAVR given her age) with CTA followed by outpatient CTS appointment. Given discrepant data regarding valve severity (low flow low gradient severe by echo, normal flow low gradient severe by cath), recommend valve
calcium scoring to further classify severity.
2. Continue primary prevention of CAD, increase statin to high intensity
3. Medical treatment of hypertension and HFpEF with diuresis, SGLT2i, antihypertensives per primary grant manager.
Copy to: Dr. Elzbieta Ruelas MD (grant manager); Dr. Larissa Smith MD (PCP)
Signed: Andrew Dominique MD, PhD
== END 2025-01-05 12:35 | disposition home or self-care (01) ==
LOC: CATH 06:37
PROVIDERS: ATTENDING PHYSICIAN Student in an Organized Health Care Education/Training Program; FAMILY PHYSICIAN Emergency Medicine; OTHER PHYSICIAN Internal Medicine Cardiovascular Disease
DX: I35.0 Nonrheumatic aortic (valve) stenosis (principal); I25.10 Atherosclerotic heart disease of native coronary artery without angina pectoris; R55 Syncope and collapse; I10 Essential (primary) hypertension; E78.5 Hyperlipidemia, unspecified; E10.649 Type 1 diabetes mellitus with hypoglycemia without coma; Z79.4 Long term (current) use of insulin; Z96.41 Presence of insulin pump (external) (internal); Z87.891 Personal history of nicotine dependence
CPT/HCPCS: 99152; 99153; C1894; C1769; 82962; 93460; Q9967

== ENCOUNTER → 2025-01-09 07:18 | Outpatient (REF) | payer BC, MEDICARE, SELFPAY ==
[2025-01-09 08:39] LABS: Blood Urea Nitrogen 11 mg/dl (7-17); Calcium 9.5 mg/dl (8.4-10.2); Carbon Dioxide 28 mmol/L (22-30); Chloride 109 mmol/L (98-107); Glucose 76 mg/dl (70-99); Potassium 4.3 mmol/L (3.5-5.1); Sodium 145 mmol/L (135-145); eGFR > 60.00
== END ==
LOC: REG 07:18
PROVIDERS: ATTENDING PHYSICIAN Nurse Practitioner Acute Care; FAMILY PHYSICIAN Emergency Medicine
DX: I35.0 Nonrheumatic aortic (valve) stenosis (principal)
CPT/HCPCS: 36415; 80048

== ENCOUNTER → 2025-01-12 09:24 | Outpatient (REF) | payer BC, MEDICARE, SELFPAY | LOC: RAD 09:24 | PROVIDERS: ATTENDING PHYSICIAN Nurse Practitioner Acute Care; FAMILY PHYSICIAN Emergency Medicine | DX: I35.0 Nonrheumatic aortic (valve) stenosis (principal) | CPT/HCPCS: 74174; 75572; Q9967 ==

== ENCOUNTER 2025-01-25 05:18 | Inpatient (IN) | payer BC, MEDICARE, SELFPAY ==
[2025-01-19 08:21] VITALS: BMI 22.5
[2025-01-19 09:18] LABS: % Basophils 0.4 % (0-2); % Immature Granulocytes 0.4 % (0-0.5); % Lymphocytes 27.2 % (20.5-51.1); % Monocytes 11.4 % (1.7-9.3); % Neutrophils 59.6 % (42.2-75.2); Absolute Eosinophils 0.1 10^3/uL (0-0.7); Absolute Lymphocytes 1.8 10^3/uL (1.2-3.4); Absolute Monocytes 0.8 10^3/uL (0.1-0.6); Hematocrit 40.9 % (37.0-47.0); Hemoglobin 13.5 g/dL (12.0-16.0); Mean Corpuscular Hgb 31.4 pg (27.0-31.0); Mean Corpuscular Volume 95.1 fL (81.0-99.0); Mean Platelet Volume 9.8 fL (7.4-10.4); Nucleated Red Blood Cells % 0 %; Platelet Count 225 10^3/uL (130-400); Red Cell Dist. Width 13.7 % (11.5-14.5); White Blood Cell Count 6.7 10^3/uL (4.8-10.8)
[2025-01-19 09:30] LABS: INR 0.97; PT 13.2 Sec (11.4-14.6)
[2025-01-19 09:31] LABS: APTT 27.3 Sec (23.4-35.0)
[2025-01-19 09:35] LABS: Glycohemoglobin (HgbA1c) 6.3 % (4.0-5.6)
[2025-01-19 09:40] LABS: Urine Albumin Negative (Neg - Trace); Urine Bilirubin Negative (Negative); Urine Character Clear (Clear); Urine Color Yellow; Urine Glucose Negative (Negative); Urine Ketone Negative (Negative); Urine Leukocyte 3+ (Negative); Urine Nitrite Negative (Negative); Urine Occult Blood Negative (Negative); Urine Urobilinogen Negative (Neg - 1+)
[2025-01-19 09:48] LABS: ALT (SGPT) 21 U/L (0-35); AST (SGOT) 27 U/L (14-36); Albumin 4.1 g/dl (3.5-5.0); Alkaline Phosphatase 116 U/L (38-126); Blood Urea Nitrogen 9 mg/dl (7-17); Calcium 9.6 mg/dl (8.4-10.2); Carbon Dioxide 29 mmol/L (22-30); Chloride 108 mmol/L (98-107); Direct Bilirubin 0.4 mg/dl (0.0-0.4); Estimated Creatinine Clearance 53 ml/min; Glucose 102 mg/dl (70-99); Potassium 4.7 mmol/L (3.5-5.1); Sodium 142 mmol/L (135-145); Total Bilirubin 0.4 mg/dl (0.2-1.3); Total Protein 6.8 g/dl (6.3-8.2); eGFR > 60.00
[2025-01-19 09:52] LABS: Urine Red Blood Cell 0-2 /HPF (0-2)
[2025-01-19 09:53] LABS: Urine Bacteria Few (Negative); Urine White Cell 21-25 /HPF (0-5)
--- NOTE | 2025-01-19 10:54 | CM ---
spoke to pt in PAT's, she is prev indep, lives with her husb in a 1 story home with no steps to enter. she denies any dme's. she has the cardiac surgery educ book, soap and instructions. she is agreeable to a f/u visit from the ct transitional care
nurse after dc. plan is for AVR- 01/25, cm role explained and all questions answered.
[2025-01-25] VITALS (16 sets, daily range): BP systolic 95–154; BP diastolic 54–75; PULSE 2–64; BMI 22.0
[2025-01-25] MEDS: BACTROBAN 2% OINTMENT 1 APPLIC NASAL ×2 (05:55→21:00)
[2025-01-25] MEDS: PROTONIX 40 MG PO (05:55)
[2025-01-25] MEDS: MAGNESIUM OXIDE 500 MG PO (05:55)
--- NOTE | 2025-01-25 06:08 | W.PN.UPDATE ---
Update Note
Progress Note Update
-preop BB is contraindicated d/t bradycardia - hr 54. Pt took her usual 160 mg of Propranolol last night.
--- NOTE | 2025-01-25 06:13 | W.CVOR.SURPR ---
CVOR Surgeon Immed Pre Op
-
I have examined this patient prior to performance of the scheduled procedure.
The patient's condition is unchanged from the time of the dictated/written History and
Physical and the patient is able to undergo the scheduled procedure.
AVR (tissue) + TRIP clip
--- NOTE | 2025-01-25 06:24 | PTCARENOTE ---
Patient arrived as a SDA for AVR/Clip. Confirmed two showers, clipped and prepped in a surgical fashion, wiped with CHG, medications reviewed and ordered meds administered, see MAR. Call rivera within reach, questions encouraged, spouse brought to
bedside, await call from OR to transport.
[2025-01-25 07:30] LABS: ACT+ - POC 112 Seconds (82-134)
[2025-01-25 07:42] LABS: Urine Albumin 1+ (Neg - Trace); Urine Bilirubin Negative (Negative); Urine Character Slightly Cloudy (Clear); Urine Color Yellow; Urine Glucose Negative (Negative); Urine Ketone 1+ (Negative); Urine Leukocyte 3+ (Negative); Urine Nitrite Negative (Negative); Urine Occult Blood 1+ (Negative); Urine Urobilinogen Negative (Neg - 1+)
[2025-01-25 08:20] LABS: Urine Squamous Cell >30 /LPF (Few)
[2025-01-25 08:25] LABS: Urine Amorphous Seen
[2025-01-25 08:26] LABS: Urine Bacteria Many (Negative); Urine White Cell >100 /HPF (0-5)
[2025-01-25 08:58] LABS: ACT+ - POC 822 Seconds (82-134)
[2025-01-25 09:40] LABS: B.E. - POC 2.3 mmol/L; Glucose - POC 187 mg/dl (70-99); HCO3 - POC 25 mmol/L (21-28); Hematocrit - POC 30 % PCV (37-47); Hemodilution- POC Yes; Hemoglobin Calculated - POC 10.3; Ionized Calcium - POC 1.04 mmol/L (1.15-1.33); Lactate - POC 0.84 mmol/L (0.36-0.75); O2 Saturation %Calculated-POC 99.9 % (94-98); PCO2 - POC 31 mmHg (35-48); PO2 - POC 277 mmHg (83-108); POC Comment CPB; Potassium - POC 3.8 mmol/L (3.5-5.1); Sodium - POC 143 mmol/L (136-145); Specimen Type - POC Arterial; pH - POC 7.51 (7.35-7.45)
[2025-01-25 09:48] LABS: Glucose - POC 83 mg/dl (70-99); HCO3 - POC 15 mmol/L (21-28); Hematocrit - POC 23 % PCV (37-47); Hemodilution- POC Yes; Ionized Calcium - POC 0.98 mmol/L (1.15-1.33); Lactate - POC 0.84 mmol/L (0.36-0.75); O2 Saturation %Calculated-POC 99.9 % (94-98); PCO2 - POC 26 mmHg (35-48); PO2 - POC 346 mmHg (83-108); POC Comment POST; Sodium - POC 147 mmol/L (136-145); Specimen Type - POC Arterial; pH - POC 7.38 (7.35-7.45)
[2025-01-25 09:48] LABS: ACT+ - POC 140 Seconds (82-134)
[2025-01-25 09:48] LABS: ACT+ - POC 638 Seconds (82-134)
[2025-01-25 09:52] LABS: ACT+ - POC 123 Seconds (82-134)
[2025-01-25 09:52] LABS: B.E. - POC 8.1 mmol/L; Glucose - POC 207 mg/dl (70-99); HCO3 - POC 30 mmol/L (21-28); Hematocrit - POC 29 % PCV (37-47); Hemodilution- POC Yes; Hemoglobin Calculated - POC 9.8; Ionized Calcium - POC 0.97 mmol/L (1.15-1.33); Lactate - POC < 0.30 mmol/L (0.36-0.75); PCO2 - POC 31 mmHg (35-48); PO2 - POC 415 mmHg (83-108); POC Comment CPB; Potassium - POC 3.8 mmol/L (3.5-5.1); Sodium - POC 142 mmol/L (136-145); Specimen Type - POC Arterial; pH - POC 7.59 (7.35-7.45)
[2025-01-25 09:52] LABS: B.E. - POC -6.9 mmol/L; Glucose - POC 179 mg/dl (70-99); HCO3 - POC 19 mmol/L (21-28); Hematocrit - POC 31 % PCV (37-47); Hemodilution- POC Yes; Hemoglobin Calculated - POC 10.4; Ionized Calcium - POC 1.03 mmol/L (1.15-1.33); Lactate - POC < 0.30 mmol/L (0.36-0.75); O2 Saturation %Calculated-POC 99.9 % (94-98); PCO2 - POC 37 mmHg (35-48); PO2 - POC 304 mmHg (83-108); POC Comment PRE; Potassium - POC 2.9 mmol/L (3.5-5.1); Sodium - POC 145 mmol/L (136-145); Specimen Type - POC Arterial; pH - POC 7.31 (7.35-7.45)
[2025-01-25 09:59] LABS: ACT+ - POC > 1003 Seconds (82-134)
--- NOTE | 2025-01-25 10:06 | W.PN.CT.SURG ---
CT Surgery Operative Note
-
CARDIAC SURGERY OPERATIVE REPORT
Preoperative Diagnosis: Aortic valve stenosis with bicuspid valve morphology and multiple episodes of syncope
Postoperative Diagnosis: Same
Procedure(s) Performed:
1. Standard sternotomy with aortic and right atrial cannulation
2. Left atrial appendage exclusion [35 mm device]
3. Surgical aortic valve replacement [23 mm bioprosthesis]
4. Placement of temporary atrial and ventricular pacing wires
5. Transesophageal echocardiography
Date of Surgery: 01/25/2025
Comorbidities:
1. Type 0 bicuspid aortic valve with heavily calcification
2. Multiple episodes of syncope, witnessed
3. Type 1 diabetes mellitus
4. Hyperlipidemia
5. Hypertension
6. History of melanoma
7. Severe low-flow low gradient aortic valve stenosis
8. Chronic diastolic dysfunction of the LV
9. Colonize, E. coli and urinary tract infection
10. Depression/anxiety
Attending Surgeon: Aristeo Kaminski MD, MS
Assistants: Ferdinand Crandall PA-C (present and necessary to assistant professor of german, retraction, suction, exposure, suture management, and wound closure under my direction)
Anesthesiology: Gregorio Patino MD and Margaux Iglesias CRNA
Scrub and Circulating RNs: Cholo Agrawal, RN, Viktor See RN
Wool Hat Hydraulicker: Rakan Soriano CCP
Anesthesia: GETA
EBL: per perfusion records
Products: None
CPB Time: 52 minutes
Aortic Cross Clamp Time: 42 minutes
Indication(s) for Procedures: This is a 64-year-old female with low-flow low-grade aortic valve stenosis, she has a type 0 bicuspid aortic valve morphology with heavy calcification of one of her leaflets. She has had multiple episodes of syncope
with 1 resulting in a facial fracture. Multidisciplinary team discussion with her outpatient prosthetic makeup designer candidly consensus that we should move forward with AVR.
Aortic Valve Description: Type 0, heavy calcification of the saundra right non cusp, left and right coronary ostia normal anatomic positions in good height above the annulus.
Findings: The ventricular ejection fraction preoperatively was 65%, the mean gradient under transesophageal echocardiography and under anesthesia was 25 mmHg. Following surgery EF was approximately 70% with no new regional wall motion
abnormalities. Her aortic valve was replaced with a 23 mm bioprosthesis, using a total of 14 nonpledgeted 2 Ethibond sutures secured to place with core knots. Her left atrial Penders also verified to be free of any thrombus or debris
preoperatively and found to be totally occlusive postoperatively. Most of the calcification was as described mostly on the neoright nonleaflet. She had no paravalvular leak at inclusion of the case and her mean gradient across the new
bioprosthetic valve while hyperdynamic was 9 mmHg. No blood products required, no inotropic support was required. She was in her sinus rhythm after the surgery did not require pacing.
Specimen(s): Aortic valve leaflets.
Prosthesis:
1. 35mm left atrial Penders clip, serial number [id number]
2. 23 mm Martínez Inspiris Resilia aortic valve, serial #[id number].
Description of Procedure: The patient was taken to the operating room. Their identity and procedure to be performed were verified and they were positioned supine on the operating table. Induction via general anesthesia with endotracheal intubation
was performed and central venous access and arterial monitoring were inserted. A preoperative transesophageal echocardiogram was performed to assess cardiac function and valvular function. The patient was then prepped and draped from chin to feet in
a sterile fashion. A preoperative time-out was performed with all members of the team present. A midline chest incision was performed along with median sternotomy. The innominate vein was isolated. Full heparinization was given (a total of 40,000
units). We created a pericardial well. The aortic cannulation site was chosen where it was soft, pliable, and free of calcium. Cannulation was performed with an arterial cannula in the ascending aorta and a triple-stage venous cannula through the
right atrial appendage. The arterial cannula line had an appropriate bounce and correlating pressures with test dosing. Next, a root vent/antegrade cannula was inserted into the ascending aorta. The ACT was confirmed to be over 400 and retrograde
autologous priming was performed before commencing cardiopulmonary bypass. The pulmonary artery was away from the aorta to facilitate a clamp site and aortotomy. A left ventricular vent was placed at the right superior pulmonary vein and
secured. The aortic cross-clamp was placed after decreasing the flow on the bypass and mean arterial pressure. A total of 1.2L initial dose of antegrade Del-Nido cardioplegia solution was given and planned for re-dosing every 75 minutes as
necessary. There was electro-mechanical arrest of the heart at 750 cc of cardioplegia however there was likely some artifact on the classroom monitor and the heart was arrested long before this visually. The left ventricle was observed for distention on
echocardiogram and manual palpation. Cold slush was placed into a sponge and topically on the RV while we systemically cooled to 34 degrees centigrade. Once I was fully arrested the heart was rotated medially and the left atrial appendage was
clipped flush to the base with a 35 mm device.
Carbon dioxide was used to flood the field. We manually identified the location of the right coronary take off. An aortotomy was made approximately 2cm above the sinotubular junction. The location of both left and right coronary vessels were
visualized in the root.The leaflets were excised and sent for pathological assessment. The annulus was debrided of any calcium being mindful of the annulus and membranous septum. The root and left ventricular outflow tract were thoroughly irrigated
to remove any debris. A total of 14 non-pledgeted 2-0 ethibond inverted annular sutures were placed [id number] circumferentially. These were brought through the sewing cuff of the prosthetic valve which as then parachuted into place. The left and
right coronary ostia were visualized and were unobstructed by the valve. A Cor-Knot device was used to secure the annular sutures. The valve was inspected and was well seated. The aortotomy was approximated with 4-0 prolene in two layers. De-airing
maneuvers were performed and temporary bipolar ventricular pacing wires were placed on the base of the right ventricle. The patient was placed in a Trendelenburg position and flows on bypass were lowered. The aortic cross clamp was removed and flows
were slowly brought back up. The aortotomy appeared hemostatic. Transesophageal echocardiography revealed no paravalvular leak and appropriate prosthetic function. Once de-airing was satisfactory, the left ventricular and root vents were removed.
After verifying acceptable parameters, we initiated weaning from cardiopulmonary bypass. Once we were off cardiopulmonary bypass, the venous cannula was clamped and removed. A test dose of protamine was administered and the patient was monitored for
any adverse reaction before resuming protamine. Once half of the protamine dose was delivered, pump suckers were turned off and the systolic blood pressure was lowered for aortic decannulation. The aortic cannula was removed and pursestrings were
tied down. All cannulation sites were oversewn with a 4-0 prolene. The aortotomy suture line was inspected and hemostasis was confirmed. Mediastinal hemostasis was obtained. Two 24Fr Eddie drains were placed within the pericardium. The sternum was
approximated with 4#7 single and 3 #6 double stainless steel wires. Fascia was approximated with #1 vicryl suture. The subcutaneous, dermis and epidermis were closed in layers in a running fashion. The skin wound was cleansed and dressed.
All instrument, sponge, and needle counts were confirmed to be correct x 2 at the end of the operation. The patient was transferred to the cardiac intensive care unit in critical but stable condition.
I, Dr. Aristeo Kaminski, was present, scrubbed for, and performed all critical elements of this procedure.
Aristeo Kaminski MD, MS
Cardiothoracic Surgeon
[facility]
This operative dictation was created using the ROCKI dictation system. Please excuse any grammatical, typographical, or 'sound alike' errors
--- NOTE | 2025-01-25 10:23 | W.PN.UPDATE ---
Update Note
Progress Note Update
IV fluids: 1500 mL
Crystalloid:� 1200 mL
U.O.:� 200 mL
UF:� 450 mL
Blood:� None
Wires:� A-V epicardial wires - off
Inotropes:� None
Pressors:� Levophed (1)
Sedatives:� Precedex (0.5)
�
NEURO: sedated on Precedex, pupils +2mm B/L
RESP: #8OT @20cm> 400/40%/16/5. Lungs clear B/L. 2 mediastinal ( 45 cc on arrival) chest tubes to -20cm suction. Sanguineous drainage.
CV: RRR +S1, S2, no S3, no�rub, no murmur. Dermabond to median sternotomy. RIJ w/[place] 24/11; CVP 7; C.O 2.43/CI 1.64
ABD: round, soft, no BS
EXT: no edema, +2/4 DP pulses B/L, R radial A-line intact
: Valencia with clear yellow urine
�
A/P:
# Severe low-flow, low-gradient
POD #0 s/p AVR (23 mm Bioprosthetic, Martínez Inspiris Resilia), TRIP clip (35 mm)
JAH: EF�70% with MG 25, hyperdynamic LV, severe LVH, moderately dilated LA
- wean and extubate
- SBP parameters of 90-110 mmHg, consider liberation to 130 mmHg if intolerant of lower SBP
- volume resuscitate for hypovolemia per protocol
- will need instruction regarding antibiotic prophylaxis for dental and invasive procedures
- consider Verapamil POD #1 for negative inotropic support in setting of hyperdynamic LV
#Bradycardia
- On Propanalol as outpatient, last dose evening prior to Sx
- Pre-operative BB held due to bradycardia prior to CVOR
- Temporary A-V epicardial wires present, maintain to back-up rate of 40
- Post-operative Metoprolol Tartrate 12.5 placed on hold
- Continue to trend/monitor HR
�
# acute surgical blood loss anemia-expected
- trend CBC, pre-op Hgb 13.5, post-op Hgb 12.5
�
# T1DM (A1C 6.3%)
- insulin infusion x 48h
- Diabetic WALL WORKER consulted
�
#Hypertension
- Outpatient regiment of Lisinopril, Propranolol - hold post-operatively
# Hyperlipidemia
- resume outpatient regiment of�atorvastatin 20 mg daily
#Depression/Anxiety
- known PMHx of depression/anxiety
- continue outpatient regiment
- Wellbutrin SR 150 BID
- Zoloft 500 mg PO daily
- Monitor QT/QTc
- post-operative EKG with QT/QTc 490/497, repeat in AM
#Colonized, E.Coli & chronic UTI
- Discussed with Dr. Kaminski
- Con't current ABX regiment
[2025-01-25 10:25] LABS: Glucose - Point of Care 89 mg/dl (70-99)
[2025-01-25 10:30] LABS: B.E. - POC -1.2 mmol/L; Glucose - POC 109 mg/dl (70-99); HCO3 - POC 24 mmol/L (21-28); Hematocrit - POC 31 % PCV (37-47); Hemodilution- POC Yes; Hemoglobin Calculated - POC 10.4; Ionized Calcium - POC 1.24 mmol/L (1.15-1.33); Lactate - POC 1.59 mmol/L (0.36-0.75); PCO2 - POC 39 mmHg (35-48); PO2 - POC 417 mmHg (83-108); POC Comment POST; Potassium - POC 2.8 mmol/L (3.5-5.1); Sodium - POC 145 mmol/L (136-145); Specimen Type - POC Arterial; pH - POC 7.39 (7.35-7.45)
[2025-01-25 10:31] LABS: B.E. 0.2 mmol/L; HCO3 24.6 mmol/L (21-28); Ionized Calcium 1.23 mMOL/L (1.15-1.33); PCO2 38 mmHg (32-35); PO2 402 mmHg (83-108); Sodium 138 mMOL/L (136-145); pH 7.42 (7.35-7.45)
[2025-01-25] MEDS: DILAUDID 0.5 MG IV (10:41)
--- NOTE | 2025-01-25 10:44 | PTCARENOTE ---
Received pt from CVOR; pt intubated and sedated; NSR on monitor and VSS; Epicardial A/v wires to box and box turned off; Jaren Gomez floated to 44, Right A-line and PIV x1; all lines leveled and zeroed; Levo, Insulin and Precedex infusing see
flow sheet for details; lungs diminished; CT x2 to -20 wall suction no air leak and no crepitus noted; hypoactive bowel sounds; Valencia catheter draining clear yellow urine; palpable pulses throughout; no edema noted; all surgical sites C/D/I; see
nursing documentation for further details.
CI 1.64
CO 2.43
SVT [id number]
[2025-01-25 10:46] LABS: Hematocrit 32.6 % (37.0-47.0); Hemoglobin 11.4 g/dL (12.0-16.0); Platelet Count 140 10^3/uL (130-400)
[2025-01-25 10:51] LABS: APTT 38.7 Sec (23.4-35.0); PT 20.2 Sec (11.4-14.6)
--- NOTE | 2025-01-25 10:51 | CON.INTV ---
Consultation
Consultation Request
Date/Time Consultation Requested: 01/25/2025 - 952
Date/Time Consultation Performed: 01/25/2025 - 1012
Requesting Provider: Carolina Wellington NP
Performing Provider: Dr. Tay
Reason for Consultation: SAVR
Medical History
-
Chief Complaint: Elective surgical aortic valve replacement
History of Present Illness:
64-year-old female with a past medical history of DM type I, hyperlipidemia, hypertension, melanoma, stress incontinence s/p stimulation device, insomnia, bicuspid aortic valve, severe low-flow, low gradient aortic stenosis, + history of syncope
requiring CPR who presents for elective aortic valve replacement. Patient known to the cardiothoracic surgery service with last visit on 01/15/[address] Kaminski. Her recent transthoracic echocardiogram on 12/01/2024 showed severe low-flow, low
gradient aortic stenosis with peak/mean gradients across the AVR 41/26 mmHg, with an ABDIEL of 0.6 cm�. There was a likely bicuspid aortic valve with restricted leaflet motion. Subsequent left heart catheterization on 01/05/2025 showed nonobstructive
CAD with elevated biventricular filling pressures with PCWP 27 mmHg, with TPG of 10 mmHg, and PVR 2.2 Wood units. Mean gradient across the aortic valve was 27.82 with a calculated ABDIEL of 0.86 cm�. Patient has been feeling shortness of breath with
walking. Previous CT TAVR on 01/12/2025 showed mild centrilobular emphysema with a 4 mm nodule in the right lower lobe which is stable dating back to 2019. Patient was recommended to have surgical intervention for her aortic valve and the
risks/benefits were discussed with her and she agreed to this procedure. Today she underwent surgical aortic valve replacement with a 23 mm bioprosthesis and a left atrial appendage exclusion with a 35 mm device. Patient tolerated the procedure
well and was transferred to the CVICU postoperatively. Extender services consulted for additional management/recommendations.
When I saw the patient she was resting in bed, intubated on SIMV at 16/400/40%/5, with PIP 31 cmH2O, VTe 414mL and breathing at 16 breaths/min. Heart rate 67, BP via A-line 122/59, PAP 37/17, CO/CI: 2.96/2, BP via NIBP: 102/54 and saturating 100%.
She is currently on insulin drip at 1.2 units/hr as well as on Levophed at 2 mcg/min. Mediastinal chest tubes x [address]
PMHx: DM type I, hyperlipidemia, hypertension, history of melanoma, stress incontinence, insomnia, bicuspid aortic valve, chronic UTI, depression, anxiety, history of syncope requiring CPR, history of head trauma with subdural hematoma/facial
fracture and right humerus fracture (06/25), severe low-flow, low gradient aortic stenosis
PSHx: , left rotator cuff tear repair, stimulation device to treat urinary incontinence
Past Medical History
Past Medical History: Other (Above as per HPI)
Past Surgical History: Other (Above as per HPI)
Social History
Tobacco: Former Smoker (1 PPD x 20 years, quit 2016)
Alcohol: Occasional (Socially -2-3 times per week)
Drug: None
Personal:
Living: With Family
Family History
Family History: Cancer (Father: Kidney cancer), Hypertension (Father + mother) and Other (Father: Valve replacement; brother: A-fib)
Allergies / Home Medications
Allergies
Allergy/AdvReac Type Severity Reaction Status Date / Time
No Known Allergies Allergy Verified 01/17/25 12:20
Home Medications
�Medication �Instructions �Recorded �Confirmed �Last Taken �Type
sertraline 100 mg tablet 200 mg PO DAILY Mental 03/08/17 01/25/25 01/24/25 History
Health/Anxiety
thiamine mononitrate (vit B1) 100 100 mg PO DAILY Supplement 06/27/24 01/25/25 01/21/25 History
mg tablet
topiramate 25 mg tablet 25 mg PO HS Mental Health/Anxiety 06/27/24 01/25/25 01/24/25 History
atorvastatin 20 mg tablet 20 mg PO DAILY cholesterol #0 tabs 07/05/24 01/25/25 01/24/25 Rx
bupropion HCl 150 mg tablet,12 hr 150 mg PO BID Mental 07/05/24 01/25/25 01/24/25 Rx
sustained-release (Wellbutrin SR) Health/Anxiety #0 tabs
lisinopril 20 mg tablet 20 mg PO DAILY blood pressure #0 07/05/24 01/25/25 01/21/25 Rx
tabs
multivitamin 1 tab PO DAILY supplement #0 tabs 07/05/24 01/25/25 01/21/25 Rx
lactobacillus combination no.4 3 3,000 mmu cells PO DAILY Supplement 01/05/25 01/25/25 01/24/25 History
billion cell capsule (Probiotic)
propranolol 160 mg capsule,24 160 mg PO HS tremors, HTN 01/05/25 01/25/25 01/24/25 History
hr,extended release
insulin lispro 100 unit/mL 1 unit SC DIRECTED Diabetes 01/17/25 01/25/25 01/25/25 05:30 History
subcutaneous solution
trazodone 50 mg tablet 50 mg PO HS insomnia 01/17/25 01/25/25 01/24/25 History
Review of Systems
-
Unable to Obtain full review of systems at this time due to: Patient Intubation
Vitals / Labs / Diagnostic Testing
Vital Signs
Temp Pulse Resp BP Pulse Ox
98 F 52 10 110/61 99
01/25/25 17:00 01/25/25 17:00 01/25/25 17:00 01/25/25 17:00 01/25/25 17:00
Lab Data
01/25/25 14:05
01/25/25 10:21
Laboratory Results
01/25/25
10:21
PT 20.2 H
INR 1.70
APTT 38.7 H
pH 7.42
pCO2 38 H
pO2 402 H
HCO3 24.6
O2 Delivery Level
Diagnostic Testing:
Physical Exam
-
HEENT: Normocephalic, Anicteric and Other (ETT in place)
Cardiovascular: S1/S2 and Peripheral Edema (negative)
Respiratory: Wheeze (negative), Rales (negative), Rhonchi (negative), Other (Mechanical breath sounds heard bilaterally) and Other (Mediastinal chest tubes x 2)
GI: Soft, Non Distended, Non Tender and Normal Bowel Sounds
Neurology: Tremors (negative) and Other (Sedated)
Skin: Warm and Dry
General: Respiratory Distress (negative), Comfortable, Chills (negative) and Sweats (negative)
Assessment
-
Assessment: 64-year-old female with a past medical history of DM type I, hyperlipidemia, hypertension, melanoma, stress incontinence s/p stimulation device, insomnia, bicuspid aortic valve, severe low-flow, low gradient aortic stenosis, + history
of syncope requiring CPR who presents for elective aortic valve replacement. Patient known to the cardiothoracic surgery service with last visit on 01/15/[address] Kaminski. Her recent transthoracic echocardiogram on 12/01/2024 showed severe
low-flow, low gradient aortic stenosis with peak/mean gradients across the AVR 41/26 mmHg, with an ABDIEL of 0.6 cm�. There was a likely bicuspid aortic valve with restricted leaflet motion. Subsequent left heart catheterization on 01/05/2025 showed
nonobstructive CAD with elevated biventricular filling pressures with PCWP 27 mmHg, with TPG of 10 mmHg, and PVR 2.2 Wood units. Mean gradient across the aortic valve was 27.82 with a calculated ABDIEL of 0.86 cm�. Patient has been feeling shortness
of breath with walking. Previous CT TAVR on 01/12/2025 showed mild centrilobular emphysema with a 4 mm nodule in the right lower lobe which is stable dating back to 2019. Patient was recommended to have surgical intervention for her aortic valve
and the risks/benefits were discussed with her and she agreed to this procedure. Today she underwent surgical aortic valve replacement with a 23 mm bioprosthesis and a left atrial appendage exclusion with a 35 mm device. Patient tolerated the
procedure well and was transferred to the CVICU postoperatively. Extender services consulted for additional management/recommendations.
Chronic conditions CELL COVERER: DM type I, hyperlipidemia, hypertension, history of melanoma, stress incontinence, insomnia, bicuspid aortic valve, chronic UTI, depression, anxiety, history of syncope requiring CPR, history of head trauma with subdural
hematoma/facial fracture and right humerus fracture (06/25), severe low-flow, low gradient aortic stenosis
Impression:
#Aortic valve stenosis with bicuspid valve morphology and multiple episodes of syncope s/p surgical aortic valve replacement with 23 mm bioprosthesis and left atrial appendage exclusion with 35mm device (POD #0)
#DM type I (HbA1c: 6.3 on 01/19/2025)
#History of chronic abnormal urinalysis/urine cultures with E. coli colonization
#Hyperlipidemia
#Hypertension
#History of melanoma
#Severe low-flow, low gradient aortic valve stenosis
#Chronic HFpEF
#Depression/anxiety
#Former tobacco smoker ([id number] Hx, quit 2016)
#Centrilobular emphysema
#Stable RLL 4mm nodule
Plan:
Ventilator settings reviewed
FiO2 will be weaned to maintain SpO2 >90-94%
Minute ventilation will be adjusted
Arterial blood gases will be monitored
Spontaneous breathing trial will be attempted with hopeful extubation after anesthesia/sedation wear off
prn nebulized bronchodilators - not currently bronchospastic
Pulmonary artery catheter parameters will be followed
Pressors/antihypertensive/inotropes/diuretics will be provided as needed
Maintain MAP>65
Replete electrolytes with K>4, Mg>2
Monitor chest tube output
Monitor hemoglobin
Monitor platelet count and coags
Transfuse blood products as needed to maintain Hb>7g/dL, plt>50k (given post-operative status)
CT surgery managing chest tubes
Monitor blood sugar to maintain euglycemia with goal BG 110-140
Insulin drip per protocol
Aspiration precautions
VAP prevention protocol
DVT prophylaxis
Early nutrition
Early mobilization
Critical care statement: A total of 38 minutes of critical care time was provided for this patient today. This includes management of ventilator, spontaneous breathing trial, arterial blood gases, pressors, of unstable vital signs, evaluation of the
patient at bedside, reviewing the patient's pertinent medical records including radiographs, microbiology, laboratory evaluations, and discussion with primary team and critical care nursing.
--- NOTE | 2025-01-25 10:51 | W.PN.CD ---
Addendum entered and electronically signed by Gordon Stovall MD 01/25/25 12:15:
64 yo female with PMH of severe , bicuspid AV, HTN, DM admitted following bio-AVR and TRIP clip today. She is weaning from drips and vent. Exam with RRR, no murmurs, trace edema. Tele: SR 60s. JAH: EF 70%, mean grad 25.
Trend tele.
ASA 81mg.
Trend BP as she recovers from OR. On lisinopril 20mg at home.
Original Note:
Today's Communication / Plan
-
Close post-op monitoring and care per CT surgery/CVICU post-op protocol
Impression / Plan
-
64 y/o female (patient of Dr. Ruelas) with hypertension, dyslipidemia, type I DM with insulin pump, hx syncope, bicuspid aortic valve with severe who is now s/p bio AVR.
Bicuspid aortic valve, severe aortic stenosis:
-s/p bio AVR, left atrial appendage exclusion, Dr. Kaminski 01/25/25
-intubated/ventilated post-op
-post-op EKG SR, nonspecific ST abnormality- no acute changes post-op (electrical artifact noted)
-CT's, Valencia, pacer wire in place
HTN:
-monitor post-operatively
DM1:
-on insulin pump as OP, on insulin gtt post-op, which requires intensive monitoring
-diabetic FOOD AND BEVERAGE ASSISTANT MANAGER consulted
Dyslipidemia:
-statin
Physical Exam
Vital Signs/Labs
Vital Signs
Temp Pulse Resp BP Pulse Ox
95.8 F L 62 16 152/75 100
01/25/25 10:33 01/25/25 10:25 01/25/25 10:31 01/25/25 05:15 01/25/25 10:32
01/24/25 01/25/25 01/26/25
06:59 06:59 06:59
Actual Weight 52.7 kg
PT 13.2 Sec (11.4-14.6) 01/19/25 08:41
INR 0.97 01/19/25 08:41
APTT 27.3 Sec (23.4-35.0) 01/19/25 08:41
Physical Exam
Constitutional: No acute distress
EENT: Anicteric
Cardiovascular: Rhythm & rate is regular
Respiratory: Wheeze Absent and Other (intubated/ventilated)
Neuro/Psych: Other (sedated)
Other: Skin (midsternal incision well approximated, no redness, drainage, swelling)
Data Reviewed
-
Date of Service: January 25, 2025
EKG: Tracing Personally Visualized and interpreted (as noted) and Other (SR)
X-Ray/CT/US/MRI/NUC/PET: Report Reviewed by me (CXR: Postop cardiothoracic surgery. No evidence for significant pneumothorax.)
Labs: Labs Reviewed by me
[2025-01-25] MEDS: NSS 500 IV (10:52)
[2025-01-25] MEDS: KCL 50 IV ×3 (10:52→21:00)
[2025-01-25 10:54] LABS: Blood Urea Nitrogen 11 mg/dl (7-17); Estimated Creatinine Clearance 71 ml/min; Glucose 94 mg/dl (70-99); Magnesium 2.2 mg/dl (1.6-2.3)
[2025-01-25 10:55] LABS: ACT+ - POC 115 Seconds (82-134)
[2025-01-25] MEDS: ANCEF 10 IV ×2 (10:57→10:58)
[2025-01-25] MEDS: NOVOLOG FLEXPEN SC ×2 (10:58→16:37)
[2025-01-25] MEDS: LR 250 ML IV ×4 (11:02→16:17)
--- NOTE | 2025-01-25 11:49 | CM ---
pt in OR today, cm to follow.
--- NOTE | 2025-01-25 11:51 | PN.DE.MGMTRT ---
Insulin Management
- -
01/25/2025 Diabetes Management Consult, Patient with insulin pump
Patient admitted today for aortic valve replacement. PMH type 1 diabetes, HLD, HTN, uti's, syncope, aortic stenosis, aortic valve with restricted leaflet motion. Prior to admission was using the tandem tslim insulin pump with control IQ. A1C
6.3%, cr .6, eGFR 60.
Patient is in the OR at the time of my visit, insulin pump is off but not available to obtain settings.
S/P OR patient to receive critical care glycemic protocol.
Will continue to follow for readiness to transition back to insulin pump.
Diabetes History
- -
Type of Diabetes: 1
Pre-Admission Diabetes Regimen
01/25/25
10:21
Creatinine 0.6
Lab Results
Hemoglobin A1c 6.3 % (4.0-5.6) H 01/19/25 08:41
Insulin Pump Settings
IP Diabetes Regimen
01/25/25
10:21
Glucose 94
POC Glucose 89
Patient Education
--- NOTE | 2025-01-25 12:00 | PTCARENOTE ---
ETT 8@ 22, CRX completed and CTNP at bedside, ETT pulled back to 20 at lip; SIMV 40%/400/5/16.
[2025-01-25 12:10] LABS: Glucose - Point of Care 86 mg/dl (70-99)
[2025-01-25 12:10] LABS: Glucose - Point of Care 71 mg/dl (70-99)
[2025-01-25 12:38] LABS: ACT+ - POC 849 Seconds (82-134)
[2025-01-25 13:07] LABS: ACT+ - POC 510 Seconds (82-134)
[2025-01-25 13:14] LABS: Glucose - Point of Care 116 mg/dl (70-99)
[2025-01-25 13:41] LABS: ACT+ - POC 960 Seconds (82-134)
[2025-01-25 14:05] LABS: ACT+ - POC 140 Seconds (82-134)
[2025-01-25 14:05] LABS: Glucose - Point of Care 105 mg/dl (70-99)
[2025-01-25] MEDS: TYLENOL PO (14:08)
[2025-01-25 14:17] LABS: Hematocrit 35.8 % (37.0-47.0); Hemoglobin 12.1 g/dL (12.0-16.0); Platelet Count 162 10^3/uL (130-400)
--- NOTE | 2025-01-25 14:51 | PTCARENOTE ---
Epicardial A/V wires tested, A wire 40/2/0.5 V wire 40/1/4; Sinus bradycardia on monitor and VSS: assessment unchanged; pt remains intubated, wake apparently however sleepy; family at bedside and updated.
[2025-01-25 14:59] LABS: Glucose - Point of Care 103 mg/dl (70-99)
--- NOTE | 2025-01-25 15:06 | PTCARENOTE ---
Respiratory at bedside, pt trialed on CPAP however failed trail; pt placed back on SIMV.
--- NOTE | 2025-01-25 15:50 | PTCARENOTE ---
Respiratory at bedside and pt placed on CPAP.
[2025-01-25 16:01] LABS: Glucose - Point of Care 98 mg/dl (70-99)
[2025-01-25] MEDS: NEURONTIN PO (16:37)
[2025-01-25] MEDS: OFIRMEV 100 IV (16:38)
[2025-01-25 17:20] LABS: B.E. - POC -2.8 mmol/L; Blood Urea Nitrogen - POC 11 mg/dl (3-120); Chloride - POC 111 mmol/L (96-111); Creatinine - POC 0.65 mg/dl (0.3-1.0); Glucose - POC 112 mg/dl (70-99); HCO3 - POC 24 mmol/L (21-28); Hematocrit - POC 35 % PCV (37-47); Hemodilution- POC Yes; Hemoglobin Calculated - POC 11.9; Ionized Calcium - POC 1.15 mmol/L (1.15-1.33); Lactate - POC 1.07 mmol/L (0.36-0.75); PCO2 - POC 47 mmHg (35-48); PO2 - POC 147 mmHg (83-108); Potassium - POC 4.1 mmol/L (3.5-5.1); Sodium - POC 146 mmol/L (136-145); Specimen Type - POC Arterial; pH - POC 7.31 (7.35-7.45)
[2025-01-25] MEDS: CALCIUM GLUCONATE 100 IV (17:20)
[2025-01-25] MEDS: ANCEF 5 IV (17:22)
--- NOTE | 2025-01-25 17:24 | PTCARENOTE ---
EPCO ABG resulted and reviewed with CTNP; Pt to remain on CPAP for another hour.
[2025-01-25 18:01] LABS: Glucose - Point of Care 109 mg/dl (70-99)
[2025-01-25 18:01] LABS: B.E. - POC -2.3 mmol/L; Blood Urea Nitrogen - POC 10 mg/dl (3-120); Chloride - POC 110 mmol/L (96-111); Creatinine - POC 0.62 mg/dl (0.3-1.0); Glucose - POC 111 mg/dl (70-99); HCO3 - POC 24 mmol/L (21-28); Hematocrit - POC 35 % PCV (37-47); Hemodilution- POC Yes; Hemoglobin Calculated - POC 11.8; Ionized Calcium - POC 1.36 mmol/L (1.15-1.33); Lactate - POC 0.87 mmol/L (0.36-0.75); O2 Saturation %Calculated-POC 99.1 % (94-98); PCO2 - POC 46 mmHg (35-48); PO2 - POC 149 mmHg (83-108); Sodium - POC 147 mmol/L (136-145); Specimen Type - POC Arterial; pH - POC 7.32 (7.35-7.45)
--- NOTE | 2025-01-25 18:13 | PTCARENOTE ---
EPOC ABG resulted and reviewed with CTNP; pt extubated at this time to 6L NC.
--- NOTE | 2025-01-25 18:23 | RESPNOTE ---
18:15 patient extubated and placed on 6L nasal cannula 99%
[2025-01-25] MEDS: DILAUDID 0.25 MG IV (19:13)
[2025-01-25 20:00] LABS: Glucose - Point of Care 100 mg/dl (70-99)
--- NOTE | 2025-01-25 20:00 | PTCARENOTE ---
Addendum entered by Kelvin Mcfarland RN 01/26/25 06:34:
correction pt A paced AAI 64,6,0.5
Original Note:
assumed care of patient @ 1900. received pt laying in bed, AOx3. drowsy postop, responds to verbal commands, ranjeet [place]. with tremors at baseline. V paced on tele at 64 through AV wires, settings VVI 64,6,0.5. BP goal 90-110. PAPs 20s/10s, CVP ~7.
+PP, - E. Lungs clear, diminished with 6L NC taking shallow breaths. 2 mediastinal chest tubes to wall suction no air leak, tidaling or crepitus noted. BS hypoactve, soft nontender belly. temp sensing indwelling urinary catheter present draining
clear yellow urine. Sternum ANKITA, CDI with glue. R IJ cordis with swan at 44, R forearm A line, L forearm PIV all intact and patent. central lines zeroed, flushed. Received on insulin per protocol. Cardene started at 1920 at 2.5 for SBP of 130. Pt
c/o 8/10 pain, dilaudid given. otherwise patient resting comfortably with call rivera within reach .
[2025-01-25 20:40] LABS: B.E. -2.6 mmol/L; HCO3 24.1 mmol/L (21-28); Ionized Calcium 1.32 mMOL/L (1.15-1.33); PCO2 49 mmHg (32-35); PO2 138 mmHg (83-108); Potassium 3.9 mMOL/L (3.5-5.1)
[2025-01-25 20:43] LABS: Mixed Venous O2 Saturation 80.1 %
[2025-01-25] MEDS: SENOKOT-S PO (21:00)
--- NOTE | 2025-01-25 21:05 | PTCARENOTE ---
C.I >2, MV02 and REGULO sent and resulted - repleting K.
[2025-01-25 21:28] LABS: Hepatitis C Antibody Negative (Negative)
[2025-01-25 21:54] LABS: Glucose - Point of Care 114 mg/dl (70-99)
[2025-01-25] MEDS: NEURONTIN 100 MG PO (21:59)
[2025-01-25] MEDS: TYLENOL 1000 MG PO (22:00)
[2025-01-25] MEDS: TOPAMAX 25 MG PO (22:00)
[2025-01-25] MEDS: TORADOL 15 MG IV (22:05)
--- NOTE | 2025-01-25 22:20 | PTCARENOTE ---
ABG with respiratory acidosis- CTPA ordered bipap. Pt placed on BIPAP by RT 10/5 with 2L. will recheck ABG in 1 hr .
[2025-01-25 23:30] LABS: B.E. -2.6 mmol/L; HCO3 24.1 mmol/L (21-28); O2 Saturation % 96.6 % (94-98); PCO2 49 mmHg (32-35); PO2 74 mmHg (83-108)
[2025-01-26] VITALS (25 sets, daily range): BP systolic 99–145; BP diastolic 51–72; PULSE 2–64; O2SAT 97–98; BMI 23.8
--- NOTE | 2025-01-26 | PTCARENOTE ---
ABG back - no improvement to c02- BIPAP settings increased to / with 4L 02. c.i down to , SVR up to 1900, UO this hour 20. Relayed to CTPA, giving 250 LR. no other change in patient assessment .
[2025-01-26 00:09] LABS: Glucose - Point of Care 85 mg/dl (70-99)
[2025-01-26] MEDS: LR 250 ML IV (00:18)
[2025-01-26 01:18] LABS: HCO3 22.2 mmol/L (21-28); O2 Saturation % 99.6 % (94-98); PCO2 44 mmHg (32-35); PO2 123 mmHg (83-108); pH 7.31 (7.35-7.45)
[2025-01-26] MEDS: ANCEF 5 IV ×2 (01:58→08:42)
[2025-01-26 02:13] LABS: Glucose - Point of Care 136 mg/dl (70-99)
[2025-01-26 02:33] LABS: B.E. -4.4 mmol/L; HCO3 21.7 mmol/L (21-28); Ionized Calcium 1.29 mMOL/L (1.15-1.33); O2 Saturation % 99.5 % (94-98); PCO2 43 mmHg (32-35); PO2 111 mmHg (83-108); Potassium 4.5 mMOL/L (3.5-5.1); pH 7.31 (7.35-7.45)
[2025-01-26 02:38] LABS: Mixed Venous O2 Saturation 71.1 %
[2025-01-26 02:46] LABS: Hematocrit 32.5 % (37.0-47.0); Hemoglobin 10.8 g/dL (12.0-16.0); Mean Corp Hgb Conc. 33.2 g/dL (33.0-37.0); Mean Corpuscular Hgb 31.4 pg (27.0-31.0); Mean Corpuscular Volume 94.5 fL (81.0-99.0); Mean Platelet Volume 10.1 fL (7.4-10.4); Platelet Count 130 10^3/uL (130-400); Red Blood Cell Count 3.44 10^6/uL (4.20-5.40); Red Cell Dist. Width 14.4 % (11.5-14.5); White Blood Cell Count 13.8 10^3/uL (4.8-10.8)
--- NOTE | 2025-01-26 03:07 | W.PN.CT ---
Today's Communication / Plan
-
-pod #1
-no significant issues overnight
-noted to have respiratory acidosis with mild CO2 retention - was on bipap 12/5 with 4L O2 overnight.
-minimize narcotics d/t CO2 retention, gave Toradol overnight
-mVO2 71.1. drips: Cardene 2.5, Insulin
-CT outputs: 2 meds 65/280 in 12/24 hrs
-dcd Valencia
-holding BB and Amio. Verapamil is considered for hyperdynamic LV
-encourage IS, OOB
Assessment / Plan
-
- Aortic valve stenosis with bicuspid valve morphology and multiple episodes of syncope- s/p Surgical aortic valve replacement [23 mm bioprosthesis Martínez Inspiris Resilia]; Left atrial appendage exclusion [35 mm device] by Dr. Kaminski on 01/25/25,
pod#1
- Type 0 bicuspid aortic valve with heavily calcification
- Multiple episodes of syncope, witnessed
- Type 1 diabetes mellitus
- Hyperlipidemia
- Hypertension
- History of melanoma
- Severe low-flow low gradient aortic valve stenosis
- Chronic diastolic dysfunction of the LV
- Colonize, E. coli and urinary tract infection
- Depression/anxiety
- Acute postop blood loss anemia- stable without transfusion
-Acute postop thrombocytopenia
-Acute postop atelectasis
-Acute postop respiratory and metabolic acidosis
-Acute postop hypovolemia with subsequent hypervolemia
Discussed patient care with: Nursing and Care Team
Subjective
-
Date of Service: January 26, 2025
Objective Data
-
Lab Results
01/26/25 02:10
PT 20.2 Sec (11.4-14.6) H 01/25/25 10:21
INR 1.70 01/25/25 10:21
APTT 38.7 Sec (23.4-35.0) H 01/25/25 10:21
Vital Signs
Vital Signs
Temp Pulse Resp BP Pulse Ox
96.4 F L 64 14 102/58 96
01/26/25 02:00 01/26/25 02:15 01/26/25 02:15 01/26/25 02:00 01/26/25 02:15
CT Intake/Output/Weight
01/25/25 01/25/25 01/26/25
06:59 18:59 06:59
Intake Total 948.2 / 1486.6 538.4 / 1486.6
Output Total 765 / 1085 320 / 1085
Balance 183.2 / 401.6 218.4 / 401.6
SaO2: 96
Physical Exam
-
General: Awake and AOx3
Cardiovascular: Regular rate & rhythm, No Murmurs and Rub
Respiratory: Decreased Breath Sounds
Sternum: Stable
Incision: Clean, Dry and Intact
Extremities: No Edema (2+ DPs b/l)
Abdomen: soft, nontender, nondistended, + decreased bowel sounds
Data Reviewed
-
Lab Results: Results Reviewed
Medications: Active Meds Reviewed
Chest X-Ray: Report Reviewed and Image Reviewed
ECG: Report Reviewed and Image Reviewed
[2025-01-26 03:09] LABS: Blood Urea Nitrogen 13 mg/dl (7-17); Calcium 9.2 mg/dl (8.4-10.2); Carbon Dioxide 21 mmol/L (22-30); Chloride 115 mmol/L (98-107); Estimated Creatinine Clearance 60 ml/min; Glucose 133 mg/dl (70-99); Potassium 4.6 mmol/L (3.5-5.1); Sodium 144 mmol/L (135-145); eGFR > 60.00
[2025-01-26] MEDS: SODIUM BICARBONATE 50 MEQ IV (03:27)
--- NOTE | 2025-01-26 04:00 | PTCARENOTE ---
labs drawn and sent, pt will be kept lined with swan and A line per CTPA. pt resting comfortably in bed, no change in assessment .
[2025-01-26 04:06] LABS: Glucose - Point of Care 93 mg/dl (70-99)
[2025-01-26 04:36] LABS: B.E. -2.5 mmol/L; HCO3 23.7 mmol/L (21-28); O2 Saturation % 99.6 % (94-98); PCO2 46 mmHg (32-35); PO2 125 mmHg (83-108); pH 7.32 (7.35-7.45)
[2025-01-26] MEDS: TYLENOL 1000 MG PO ×3 (06:18→20:09)
[2025-01-26] MEDS: TORADOL 15 MG IV (06:18)
--- NOTE | 2025-01-26 07:30 | W.PN.ANS.POP ---
Anesthesia Post Operative
- Anesthesia Post Op Note
Vital Signs Stable-See Nursing Note: Yes
Airway Patent: Yes
Adequate Pain Control: Yes
Change in Mental Status: No
Current Postoperative Nausea & Vomiting: No
Anesthesia Complications: No
General Anesthetic Recall: No
Unplanned Admission: No
Post Op Hydration Adequate: Yes
[2025-01-26 07:55] LABS: Glucose - Point of Care 121 mg/dl (70-99)
--- NOTE | 2025-01-26 07:55 | PN.DE.MGMTRT ---
Insulin Management
- -
01/26/2025 Diabetes Management Consult, Patient with insulin pump
Patient admitted today for aortic valve replacement. PMH: Type 1 diabetes, HLD, HTN, UTI's, syncope, Aortic Stenosis, Aortic valve with restricted leaflet motion. Prior to admission was using the tandem tslim insulin pump with control IQ. A1C
6.3%, cr .6, eGFR 60.
Patient is awake, alert, oriented, resting in bed, offers no complaints, able to discuss diabetes care. POD # 1, doing well.
Currently on clear liquid diet and critical care glycemic protocol, glucose range 85 to 136, requiring 0.4 to 1.5 units of insulin/hr.
Will cont CCGP for now and plan to transition pot off drip to insulin pump once solid diet has been started
Will continue to follow for readiness to transition back to insulin pump. Pt states she has all insulin pump supplies and insulin at bedside and will be able to utilize use of her insulin pump independently without difficulties.
Diabetes History
- -
Type of Diabetes: 1
Pre-Admission Diabetes Regimen
01/25/25 01/26/25
10:21 02:10
Creatinine 0.6 0.7
Lab Results
Hemoglobin A1c 6.3 % (4.0-5.6) H 01/19/25 08:41
Insulin Pump Settings
IP Diabetes Regimen
01/25/25 01/25/25 01/25/25
10:21 11:19 12:03
Glucose 94
POC Glucose 89 71 86
01/25/25 01/25/25 01/25/25
13:10 14:03 14:57
Glucose
POC Glucose 116 H 105 H 103 H
01/25/25 01/25/25 01/25/25
15:59 17:59 19:59
Glucose
POC Glucose 98 109 H 100 H
01/25/25 01/26/25 01/26/25
21:52 00:08 02:10
Glucose 133 H
POC Glucose 114 H 85
01/26/25 01/26/25
02:12 04:05
Glucose
POC Glucose 136 H 93
Patient Education
--- NOTE | 2025-01-26 08:00 | PTCARENOTE ---
resumed care of patient from previous RN. resting in bed at time of assessment. AAOx3. +tremors (baseline). AV wires present to back up temp pacer. set to 64/6/0.5. A paced on monitor at 64. 99% 2L nc. weaned to RA. 96%. lungs clear but diminished.
CTx2 (medx2) to wall suction no air leak, tidaling or crepitus noted. draining serosang. +bs. expressing hunger. DTV. draining clear yellow urine. Sternum ANKITA, CDI with glue. R IJ cordis with swan at 44, R radial A line, PIV intact and patent.
insulin per protocol. See MAR for med dosing. will continue to monitor.
--- NOTE | 2025-01-26 08:23 | W.PN.INTV ---
Today's Communication / Plan
Recommendations
Up OOB as tolerated
Pain control
Encourage incentive spirometer use
Goal BG 110�140
Maintain MAP >65
Cycle Consultant services will continue to follow along until patient downgraded to CVICU�telemetry status, at which point we will sign off.
Assessment
-
Assessment: 64-year-old female with a past medical history of DM type I, hyperlipidemia, hypertension, melanoma, stress incontinence s/p stimulation device, insomnia, bicuspid aortic valve, severe low-flow, low gradient aortic stenosis, + history
of syncope requiring CPR who presents for elective aortic valve replacement. Patient known to the cardiothoracic surgery service with last visit on 01/15/[address] Kaminski. Her recent transthoracic echocardiogram on 12/01/2024 showed severe
low-flow, low gradient aortic stenosis with peak/mean gradients across the AVR 41/26 mmHg, with an ABDIEL of 0.6 cm�. There was a likely bicuspid aortic valve with restricted leaflet motion. Subsequent left heart catheterization on 01/05/2025 showed
nonobstructive CAD with elevated biventricular filling pressures with PCWP 27 mmHg, with TPG of 10 mmHg, and PVR 2.2 Wood units. Mean gradient across the aortic valve was 27.82 with a calculated ABDIEL of 0.86 cm�. Patient has been feeling shortness
of breath with walking. Previous CT TAVR on 01/12/2025 showed mild centrilobular emphysema with a 4 mm nodule in the right lower lobe which is stable dating back to 2019. Patient was recommended to have surgical intervention for her aortic valve
and the risks/benefits were discussed with her and she agreed to this procedure. Today she underwent surgical aortic valve replacement with a 23 mm bioprosthesis and a left atrial appendage exclusion with a 35 mm device. Patient tolerated the
procedure well and was transferred to the CVICU postoperatively. Cycle Consultant services consulted for additional management/recommendations.
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
hematoma/facial fracture and right humerus fracture (06/25), severe low-flow, low gradient aortic stenosis
Impression:
#Aortic valve stenosis with bicuspid valve morphology and multiple episodes of syncope s/p surgical aortic valve replacement with 23 mm bioprosthesis and left atrial appendage exclusion with 35mm device (POD #1)
#DM type I (HbA1c: 6.3 on 01/19/2025)
#History of chronic abnormal urinalysis/urine cultures with E. coli colonization
#Hyperlipidemia
#Hypertension
#History of melanoma
#Severe low-flow, low gradient aortic valve stenosis
#Chronic HFpEF
#Depression/anxiety
#Former tobacco smoker ([id number] Hx, quit 2016)
#Centrilobular emphysema
#Stable RLL 4mm nodule
Plan:
Patient successfully extubated to nasal cannula on 01/25/2025, and is now breathing comfortably on room air saturating 98-99%
Maintain SpO2 >90-94%
prn nebulized bronchodilators - not currently bronchospastic
Encourage incentive spirometer q1hr while awake
Pulmonary artery catheter parameters will be followed
Pressors/antihypertensive/inotropes/diuretics will be provided as needed
Maintain MAP>65
Replete electrolytes with K>4, Mg>2
Monitor chest tube output (mediastinal chest tubes x 2)
Monitor hemoglobin
Monitor platelet count and coags
Transfuse blood products as needed to maintain Hb>7g/dL, plt>50k (given post-operative status)
CT surgery managing chest tubes
Monitor blood sugar to maintain euglycemia with goal BG 110-140
Insulin drip being weaned off
Aspiration precautions
DVT prophylaxis
Early nutrition
Early mobilization
Cycle Consultant services will continue to follow along until patient downgraded to CVICU�telemetry status.
Total time spent today was 58 minutes for this encounter. Time includes reviewing laboratory test/imaging results, reviewing pertinent medical records, obtaining and reviewing medical history, performing an appropriate exam, ordering medications,
tests and procedures. Time also includes documentation of this encounter, coordinating patient care and communicating with other healthcare professionals. Total time does not include separately billed tests performed on this date of service.
Subjective Dataa
Subjective Data
Date of Service:
Date of Service: January 26, 2025
Chief Complaint: Cycle Consultant Follow Up
Subjective:
Patient seen and evaluated today bedside. Resting in bed in no acute distress. Heart rate 55, BP 106/59 and saturating 99% on room air. No chest pain, MOSQUERA, nausea, fevers or chills reported.
Review of Systems
General: Other (Negative unless mentioned above)
Objective Data
Data Reviewed
Vital Signs / I&O / Oxygen:
Vital Signs
Temp Pulse Resp BP Pulse Ox
97.6 F 64 13 138/71 97
01/26/25 09:00 01/26/25 09:05 01/26/25 09:05 01/26/25 09:00 01/26/25 09:05
Intake and Output
01/25/25 01/26/25 01/27/25
06:59 06:59 06:59
Intake Total 1573.5 / 1594.7 42.4 / 42.4
Output Total 1225 / 1235 35 / 35
Balance 348.5 / 359.7 7.4 / 7.4
SaO2 [CPAP] 98
SaO2 [SIMV] 100
SaO2 97
Nasal Cannula flow liters per 4
minute
Physical Exam
General: Respiratory Distress (negative), Comfortable, Chills (negative) and Sweats (negative)
HEENT: Normocephalic, Anicteric and Other (R-IJ cordis)
Cardiovascular: S1-S2, Rub (Positive) and Peripheral Edema (negative)
Respiratory: Clear, Wheeze (negative), Crackles (negative), Rhonchi (negative), Non-Labored Respirations and Chest Tube (Mediastinal chest tubes x 2)
GI: Soft, Non Distended, Non Tender and Normal Bowel Sounds
Neurology: AO x 3 and Tremors (negative)
Skin: Warm, Dry, Cyanosis (negative) and Jaundice (negative)
Labs/Micro/Reports
Lab Data
01/26/25 02:10
01/26/25 02:10
Laboratory Results
01/25/25 01/25/25 01/25/25
10:21 20:28 23:23
PT 20.2 H
INR 1.70
APTT 38.7 H
pH 7.42 7.30 L 7.30 L
pCO2 38 H 49 H 49 H
pO2 402 H 138 H 74 L
HCO3 24.6 24.1 24.1
O2 Delivery Level
01/26/25 01/26/25 01/26/25
01:11 02:10 04:21
PT
INR
APTT
pH 7.31 L 7.31 L 7.32 L
pCO2 44 H 43 H 46 H
pO2 123 H 111 H 125 H
HCO3 22.2 21.7 23.7
O2 Delivery Level
[2025-01-26] MEDS: MAGNESIUM OXIDE 500 MG PO ×2 (08:42→20:09)
[2025-01-26] MEDS: SENOKOT-S 1 TABLET PO ×2 (08:42→20:08)
[2025-01-26] MEDS: VISBIOME 1 CAP PO (08:42)
[2025-01-26] MEDS: LIDOCAINE 4% PATCH 1 PATCH TOPICAL (08:43)
[2025-01-26] MEDS: LIPITOR 20 MG PO (08:44)
[2025-01-26] MEDS: WELLBUTRIN SR (12 hour sustained release) 150 MG PO ×2 (08:44→20:08)
[2025-01-26] MEDS: NEURONTIN 100 MG PO ×3 (08:44→20:09)
[2025-01-26] MEDS: ZOLOFT 200 MG PO (08:45)
[2025-01-26] MEDS: PROTONIX 40 MG PO (08:46)
[2025-01-26] MEDS: THERAGRAN 1 TABLET PO (08:46)
[2025-01-26] MEDS: VITAMIN B1 100 MG PO (08:47)
[2025-01-26] MEDS: LOW STRENGTH ASPIRIN 81 MG PO (08:48)
[2025-01-26] MEDS: BACTROBAN 2% OINTMENT 1 APPLIC NASAL ×2 (08:48→21:59)
[2025-01-26] MEDS: NSS IV (09:03)
[2025-01-26 09:29] LABS: Glucose - Point of Care 113 mg/dl (70-99)
[2025-01-26] MEDS: NOVOLOG FLEXPEN SC ×3 (09:55→19:58)
[2025-01-26 12:12] LABS: Glucose - Point of Care 175 mg/dl (70-99)
--- NOTE | 2025-01-26 14:14 | W.PN.CD ---
Today's Communication / Plan
-
trend tele
Impression / Plan
-
64 y/o female (patient of Dr. Ruelas) with hypertension, dyslipidemia, type I DM with insulin pump, hx syncope, bicuspid aortic valve with severe who is now s/p bio AVR.
Bicuspid aortic valve, severe aortic stenosis:
-s/p bio AVR, left atrial appendage exclusion, Dr. Kaminski 01/25/25
-JAH: EF 70%
-ASA 81mg daily
Rhythm
-sinus bradycardia, still using temp pacer
-home propranolol on hold (for tremor)
HTN:
-monitor post-operatively
Dyslipidemia:
-continue atorvastatin 20mg
Physical Exam
Vital Signs/Labs
Vital Signs
Temp Pulse Resp BP Pulse Ox
97.5 F 58 16 121/68 98
01/26/25 12:15 01/26/25 13:15 01/26/25 11:25 01/26/25 13:09 01/26/25 12:15
01/25/25 01/26/25 01/27/25
06:59 06:59 06:59
Actual Weight 52.7 kg 57 kg
01/26/25 02:10
01/26/25 02:10
PT 20.2 Sec (11.4-14.6) H 01/25/25 10:21
INR 1.70 01/25/25 10:21
APTT 38.7 Sec (23.4-35.0) H 01/25/25 10:21
Magnesium 2.0 mg/dl (1.6-2.3) 01/26/25 02:10
Physical Exam
Constitutional: No acute distress
EENT: Moist mucous membranes
Cardiovascular: Rhythm & rate is regular, Pedal edema is absent, JVD pressure is normal and Systolic murmur absent
Respiratory: Respiratory effort normal and Lungs clear to auscul.
Neuro/Psych: AO x 3
Data Reviewed
-
Date of Service: January 26, 2025
EKG: Other (Tele: sinus trupti and A pacing)
Labs: Labs Reviewed by me
[2025-01-26 14:18] LABS: Glucose - Point of Care 211 mg/dl (70-99)
[2025-01-26] MEDS: FERRLECIT 110 MG IV (14:20)
[2025-01-26] MEDS: ROXICODONE 5 MG PO ×2 (14:28→20:09)
--- NOTE | 2025-01-26 16:00 | PTCARENOTE ---
continues with insulin gtt. will have pump put back on by diabetes management. + appetite. eating most of meals. will cotninue to monitor.
--- NOTE | 2025-01-26 16:28 | CM ---
dc plans remian home when medically stable with f/u visit form the ct transitional care nurse
[2025-01-26 16:29] LABS: Glucose - Point of Care 189 mg/dl (70-99)
[2025-01-26 18:04] LABS: Glucose - Point of Care 106 mg/dl (70-99)
[2025-01-26 19:33] LABS: Glucose - Point of Care 84 mg/dl (70-99)
--- NOTE | 2025-01-26 20:00 | PTCARENOTE ---
assumed care of patient @ 1900. received pt laying in bed, Aox3. assisted pt to bathroom and back to void with steady gait. SB on tele HR 50s. AV wires hooked up to box, turned off. Lungs clear, diminished satting high 90s on room air. CTPA says no
need for BIPAP tonight. 2 mediastinal chest tubes to wall suction no issues. Tolerating diet. voiding clear yellow urine in toilet. Sternal inscision ANKITA. R IJ cordis and PIV all patent. pt resting comfortably in bed with call rivera within reach .
[2025-01-26] MEDS: TOPAMAX 25 MG PO (20:10)
[2025-01-26 20:16] LABS: Glucose - Point of Care 123 mg/dl (70-99)
[2025-01-26 21:58] LABS: Glucose - Point of Care 102 mg/dl (70-99)
[2025-01-27] VITALS (12 sets, daily range): BP systolic 100–161; BP diastolic 40–73; BMI 22.8
--- NOTE | 2025-01-27 | PTCARENOTE ---
pt resting comfortably, no change in assessment .
[2025-01-27 00:13] LABS: Glucose - Point of Care 90 mg/dl (70-99)
[2025-01-27 01:57] LABS: Glucose - Point of Care 101 mg/dl (70-99)
--- NOTE | 2025-01-27 04:00 | PTCARENOTE ---
labs drawn and sent , pt resting comfortably, no change in assessment .
[2025-01-27 04:08] LABS: Glucose - Point of Care 90 mg/dl (70-99)
[2025-01-27 04:39] LABS: Hematocrit 30.3 % (37.0-47.0); Hemoglobin 10.2 g/dL (12.0-16.0); Mean Corp Hgb Conc. 33.7 g/dL (33.0-37.0); Mean Platelet Volume 10.5 fL (7.4-10.4); Platelet Count 95 10^3/uL (130-400); Red Blood Cell Count 3.19 10^6/uL (4.20-5.40); Red Cell Dist. Width 14.6 % (11.5-14.5); White Blood Cell Count 14.3 10^3/uL (4.8-10.8)
[2025-01-27 04:57] LABS: Blood Urea Nitrogen 29 mg/dl (7-17); Calcium 8.5 mg/dl (8.4-10.2); Carbon Dioxide 25 mmol/L (22-30); Chloride 108 mmol/L (98-107); Estimated Creatinine Clearance 42 ml/min; Glucose 90 mg/dl (70-99); Magnesium 2.4 mg/dl (1.6-2.3); Potassium 3.8 mmol/L (3.5-5.1); Sodium 137 mmol/L (135-145); eGFR > 60.00
[2025-01-27 06:29] LABS: Glucose - Point of Care 117 mg/dl (70-99)
[2025-01-27] MEDS: KCL 40 MEQ PO (06:32)
[2025-01-27] MEDS: TYLENOL 1000 MG PO ×2 (06:33→21:16)
[2025-01-27 07:56] LABS: Glucose - Point of Care 112 mg/dl (70-99)
[2025-01-27] MEDS: NOVOLOG FLEXPEN 4 UNITS SC (08:00)
--- NOTE | 2025-01-27 08:00 | PTCARENOTE ---
resumed care of patient from previous RN. OOB in chair at time of assessment. AAOx3. +tremors (baseline). AV wires insulated. SR/SB hr 50-60s. 96% RA. lungs clear but diminished. CTx2 (medx2) to wall suction no air leak, tidaling or crepitus noted.
orders to d/c this AM. +bs. appetite good. assistx1 to BR. Sternum ANKITA, CDI with glue. R IJ cordis and PIV intact and patent. insulin per protocol. orders to place own insulin pump today as well. will d/c insulin gtt afterwards. will continue to
monitor.
[2025-01-27] MEDS: BACTROBAN 2% OINTMENT 1 APPLIC NASAL ×2 (08:01→21:13)
--- NOTE | 2025-01-27 08:24 | W.PN.CT ---
Addendum entered and electronically signed by Con العراقي MD 01/27/25 08:41:
I saw and examined the patient.
The PA's note was reviewed and I agree with the note.
Comment:
POD#2 s/p AVR, ELAA
No sig overnight events.� Keep wires.� D/C CTs.� Continue to hold BB & amio for asymptomatic bradycardia w/ HRs 40s-60s.� OOB/IS/ambulate
Original Note:
Today's Communication / Plan
-
-pod #2
-no significant issues overnight
-CT outputs: 2 meds 45/170 in 12/24 hrs
-holding BB and Amio d/t bradycardia- hr improved
-K 3.8 today - got 40 po KCL
-weaned off O2 - pOx 97% on RA
-encourage IS, OOB
Assessment / Plan
-
- Aortic valve stenosis with bicuspid valve morphology and multiple episodes of syncope- s/p Surgical aortic valve replacement [23 mm bioprosthesis Martínez Inspiris Resilia]; Left atrial appendage exclusion [35 mm device] by Dr. Kaminski on 01/25/25,
pod#2
- Type 0 bicuspid aortic valve with heavily calcification
- Multiple episodes of syncope, witnessed
- Type 1 diabetes mellitus
- Hyperlipidemia
- Hypertension
- History of melanoma
- Severe low-flow low gradient aortic valve stenosis
- Chronic diastolic dysfunction of the LV
- Colonize, E. coli and urinary tract infection
- Depression/anxiety
- Acute postop blood loss anemia- stable without transfusion
-Acute postop thrombocytopenia
-Acute postop atelectasis
-Acute postop respiratory and metabolic acidosis
-Acute postop hypovolemia with subsequent hypervolemia
Discussed patient care with: Nursing and Care Team
Subjective
-
Date of Service: January 27, 2025
Objective Data
-
Lab Results
01/27/25 04:05
01/27/25 04:05
PT 20.2 Sec (11.4-14.6) H 01/25/25 10:21
INR 1.70 01/25/25 10:21
APTT 38.7 Sec (23.4-35.0) H 01/25/25 10:21
Vital Signs
Vital Signs
Temp Pulse Resp BP Pulse Ox
97.4 F 56 14 113/52 97
01/27/25 00:00 01/27/25 05:20 01/27/25 04:00 01/27/25 05:00 01/27/25 04:00
CT Intake/Output/Weight
01/26/25 01/27/25 01/27/25
18:59 06:59 18:59
Intake Total 721.6 / 822.4 100.8 / 822.4
Output Total 125 / 170 45 / 170
Balance 596.6 / 652.4 55.8 / 652.4
SaO2: 97
Physical Exam
-
General: Awake and AOx3
Cardiovascular: Regular rate & rhythm, No Murmurs and Rub
Respiratory: Decreased Breath Sounds
Sternum: Stable
Incision: Clean, Dry and Intact
Abdomen: soft, nontender, nondistended, + decreased bowel sounds
Extremities: No Edema (2+ DPs b/l)
Data Reviewed
-
Lab Results: Results Reviewed
Medications: Active Meds Reviewed
Chest X-Ray: Report Reviewed and Image Reviewed
ECG: Report Reviewed and Image Reviewed
--- NOTE | 2025-01-27 08:27 | W.PN.INTV ---
Today's Communication / Plan
Recommendations
Up OOB as tolerated
Pain control
Encourage incentive spirometer use
Goal BG 110�140 - transition off insulin drip to her insulin pump that she uses at home; nurse to continue obtaining POCT BG as per protocol
Maintain MAP >65
Patient's insulin pump is going to be placed and insulin drip will be stopped. Once this is done and patient downgraded to CVICU�telemetry status then our service will sign off. Please call back if there are any additional questions or concerns.
Assessment
-
Assessment: 64-year-old female with a past medical history of DM type I, hyperlipidemia, hypertension, melanoma, stress incontinence s/p stimulation device, insomnia, bicuspid aortic valve, severe low-flow, low gradient aortic stenosis, + history
of syncope requiring CPR who presents for elective aortic valve replacement. Patient known to the cardiothoracic surgery service with last visit on 01/15/[address] Kaminski. Her recent transthoracic echocardiogram on 12/01/2024 showed severe
low-flow, low gradient aortic stenosis with peak/mean gradients across the AVR 41/26 mmHg, with an ABDIEL of 0.6 cm�. There was a likely bicuspid aortic valve with restricted leaflet motion. Subsequent left heart catheterization on 01/05/2025 showed
nonobstructive CAD with elevated biventricular filling pressures with PCWP 27 mmHg, with TPG of 10 mmHg, and PVR 2.2 Wood units. Mean gradient across the aortic valve was 27.82 with a calculated ABDIEL of 0.86 cm�. Patient has been feeling shortness
of breath with walking. Previous CT TAVR on 01/12/2025 showed mild centrilobular emphysema with a 4 mm nodule in the right lower lobe which is stable dating back to 2019. Patient was recommended to have surgical intervention for her aortic valve
and the risks/benefits were discussed with her and she agreed to this procedure. Today she underwent surgical aortic valve replacement with a 23 mm bioprosthesis and a left atrial appendage exclusion with a 35 mm device. Patient tolerated the
procedure well and was transferred to the CVICU postoperatively. Clinical Team Manager services consulted for additional management/recommendations.
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
hematoma/facial fracture and right humerus fracture (06/25), severe low-flow, low gradient aortic stenosis
Impression:
#Aortic valve stenosis with bicuspid valve morphology and multiple episodes of syncope s/p surgical aortic valve replacement with 23 mm bioprosthesis and left atrial appendage exclusion with 35mm device (POD #2)
#DM type I (HbA1c: 6.3 on 01/19/2025)
#History of chronic abnormal urinalysis/urine cultures with E. coli colonization
#Hyperlipidemia
#Hypertension
#History of melanoma
#Severe low-flow, low gradient aortic valve stenosis
#Chronic HFpEF
#Depression/anxiety
#Former tobacco smoker ([id number] Hx, quit 2016)
#Centrilobular emphysema
#Stable RLL 4mm nodule
Plan:
Patient successfully extubated to nasal cannula on 01/25/2025, and is now breathing comfortably on room air saturating 98-99%
Maintain SpO2 >90-94%
prn nebulized bronchodilators - not currently bronchospastic
Encourage incentive spirometer q1hr while awake
Pulmonary artery catheter parameters will be followed
Pressors/antihypertensive/inotropes/diuretics will be provided as needed
Maintain MAP>65
Replete electrolytes with K>4, Mg>2
Monitor chest tube output (mediastinal chest tubes x 2 - to be removed this AM)
Monitor hemoglobin
Monitor platelet count and coags
Transfuse blood products as needed to maintain Hb>7g/dL, plt>50k (given post-operative status)
CT surgery managing chest tubes
Monitor blood sugar to maintain euglycemia with goal BG 110-140
Insulin drip still on - recommend to transition to home insulin pump; she also has Dexcom monitor; she just is instructed to tell the RN if she administers herself any insulin, and the RN still has to obtain BG checks per protocol
Aspiration precautions
DVT prophylaxis
Early nutrition
Early mobilization
Patient's insulin pump is going to be placed and insulin drip will be stopped. Once this is done and patient downgraded to CVICU�telemetry status then our service will sign off. Please call back if there are any additional questions or concerns.
Total time spent today was 38 minutes for this encounter. Time includes reviewing laboratory test/imaging results, reviewing pertinent medical records, obtaining and reviewing medical history, performing an appropriate exam, ordering medications,
tests and procedures. Time also includes documentation of this encounter, coordinating patient care and communicating with other healthcare professionals. Total time does not include separately billed tests performed on this date of service.
Subjective Dataa
Subjective Data
Date of Service:
Date of Service: January 27, 2025
Chief Complaint: Clinical Team Manager Follow Up
Subjective:
Patient was seen and evaluated today at bedside. Remains on insulin drip at 0.1 units/hr. Patient has her insulin pump with her and wants to transition to this. She otherwise feels well, denying MOSQUERA, SOB at rest, abdominal pain, nausea, fevers or
chills.
Review of Systems
General: Other (Negative unless mentioned above)
Objective Data
Data Reviewed
Vital Signs / I&O / Oxygen:
Vital Signs
Temp Pulse Resp BP Pulse Ox
98.1 F 60 18 113/52 97
01/27/25 08:00 01/27/25 08:30 01/27/25 08:00 01/27/25 05:00 01/27/25 08:26
Intake and Output
01/26/25 01/27/25 01/28/25
06:59 06:59 06:59
Intake Total 1573.5 / 1594.7 822.4 / 822.4 12.3 / 12.3
Output Total 1225 / 1235 170 / 170 60 / 60
Balance 348.5 / 359.7 652.4 / 652.4 -47.7 / -47.7
SaO2 [CPAP] 98
SaO2 [SIMV] 100
SaO2 97
Nasal Cannula flow liters per 4
minute
Physical Exam
General: Respiratory Distress (negative), Comfortable, Chills (negative) and Sweats (negative)
HEENT: Normocephalic, Anicteric and Other (R-IJ cordis)
Cardiovascular: S1-S2, Rub (Positive) and Peripheral Edema (negative)
Respiratory: Clear, Wheeze (negative), Crackles (negative), Rhonchi (negative), Non-Labored Respirations and Chest Tube (Mediastinal chest tubes x 2)
GI: Soft, Non Distended, Non Tender and Normal Bowel Sounds
Neurology: AO x 3 and Tremors (negative)
Skin: Warm, Dry, Cyanosis (negative) and Jaundice (negative)
Labs/Micro/Reports
Lab Data
01/27/25 04:05
01/27/25 04:05
Microbiology
01/25/25 07:26 Urine Urine Culture - Final
Escherichia coli
[2025-01-27] MEDS: LIDOCAINE 4% PATCH 1 PATCH TOPICAL (08:34)
[2025-01-27] MEDS: VISBIOME 1 CAP PO (08:37)
[2025-01-27] MEDS: VITAMIN B1 100 MG PO (08:37)
[2025-01-27] MEDS: MAGNESIUM OXIDE 500 MG PO ×2 (08:37→21:13)
[2025-01-27] MEDS: PROTONIX 40 MG PO (08:37)
[2025-01-27] MEDS: WELLBUTRIN SR (12 hour sustained release) 150 MG PO ×2 (08:38→21:14)
[2025-01-27] MEDS: THERAGRAN 1 TABLET PO (08:39)
[2025-01-27] MEDS: LIPITOR 20 MG PO (08:39)
[2025-01-27] MEDS: NEURONTIN 100 MG PO ×3 (08:39→21:14)
[2025-01-27] MEDS: ZOLOFT 200 MG PO (08:39)
[2025-01-27] MEDS: LOW STRENGTH ASPIRIN 81 MG PO (08:41)
[2025-01-27] MEDS: SENOKOT-S 1 TABLET PO ×2 (08:41→21:14)
--- NOTE | 2025-01-27 10:40 | PTCARENOTE ---
d/c chest tubes without issue.
--- NOTE | 2025-01-27 11:05 | PTCARENOTE ---
d/c meds without issue
[2025-01-27] MEDS: NSS IV (11:07)
[2025-01-27 11:25] LABS: Glucose - Point of Care 71 mg/dl (70-99)
[2025-01-27] MEDS: TYLENOL PO (12:03)
[2025-01-27] MEDS: NOVOLOG FLEXPEN SC (12:03)
--- NOTE | 2025-01-27 12:08 | CHAP ---
Edel was sitting in the chair, in good spirits, enjoying visitors. Emotional and spiritual support provided, along with a prayer blanket. Pastoral Care remains available.
[2025-01-27 12:53] LABS: Glucose - Point of Care 66 mg/dl (70-99)
[2025-01-27] MEDS: FERRLECIT 110 MG IV (13:03)
--- NOTE | 2025-01-27 13:40 | PTCARENOTE ---
d/c insulin gtt and patients own pump replaced. will continue to monitor.
--- NOTE | 2025-01-27 14:27 | W.PN.CD ---
Today's Communication / Plan
-
continue ASA 81mg daily, metoprolol
assess to transition to home propranolol for tremor before d/c
trend tele
Impression / Plan
-
64 y/o female (patient of Dr. Ruelas) with hypertension, dyslipidemia, type I DM with insulin pump, hx syncope, bicuspid aortic valve with severe who is now s/p bio AVR.
Bicuspid aortic valve, severe aortic stenosis:
-s/p bio AVR, left atrial appendage exclusion, Dr. Kaminski 01/25/25
-JAH: EF 70%
-ASA 81mg daily, metoprolol
Rhythm
-sinus bradycardia
-home propranolol on hold (for tremor)
HTN:
-lisinopril 5mg daily
Dyslipidemia:
-continue atorvastatin 20mg
Physical Exam
Vital Signs/Labs
Vital Signs
Temp Pulse Resp BP Pulse Ox
97.4 F 62 18 161/68 96
01/27/25 12:00 01/27/25 12:05 01/27/25 12:00 01/27/25 11:49 01/27/25 13:42
01/26/25 01/27/25 01/28/25
06:59 06:59 06:59
Actual Weight 57 kg 54.7 kg
01/27/25 04:05
01/27/25 04:05
PT 20.2 Sec (11.4-14.6) H 01/25/25 10:21
INR 1.70 01/25/25 10:21
APTT 38.7 Sec (23.4-35.0) H 01/25/25 10:21
Magnesium 2.4 mg/dl (1.6-2.3) H 01/27/25 04:05
Physical Exam
Constitutional: No acute distress and Comfortable
EENT: Moist mucous membranes
Cardiovascular: Rhythm & rate is regular, Pedal edema is absent, JVD pressure is normal and Systolic murmur present
Respiratory: Respiratory effort normal and Lungs clear to auscul.
Neuro/Psych: AO x 3
Data Reviewed
-
Date of Service: January 27, 2025
EKG: Other (Tele: SR/SB, brief SVT)
Labs: Labs Reviewed by me
[2025-01-27] MEDS: ZESTRIL 5 MG PO (15:54)
[2025-01-27 17:30] LABS: Glucose - Point of Care 187 mg/dl (70-99)
[2025-01-27] MEDS: PATIENT'S OWN INSULIN PUMP 4.07 UNITS SC (17:40)
--- NOTE | 2025-01-27 20:00 | PTCARENOTE ---
assumed care of patient @ 1900. received pt laying in bed, Aox3. VSS. SB on tele. Lungs clear throughout satting high 90s on room air. belly soft, normoactive. voiding clear yellow urine in toilet. sternum ANKITA, CT sites CDI. R IJ cordis and PIV
intact. pt resting comfortably in bed with call rivera within reach .
[2025-01-27] MEDS: TOPAMAX 25 MG PO (21:14)
[2025-01-27] MEDS: ROXICODONE 5 MG PO (21:14)
[2025-01-27] MEDS: PATIENT'S OWN INSULIN PUMP SC (21:15)
--- NOTE | 2025-01-27 21:30 | PTCARENOTE ---
after swallowing pills, this RN and CTPA witnessed pt aspirate a large amount of water. pt started choking and coughing violently, desatting to the 70s. placed on NRB 15L with resolution of 02 to the 90s. on ausculation, pt sounded extremely tight
and rhonchorous throughout. Duoneb given by RT, afterwards pt felt much better and lungs sounded improved, allthough still with trace rhonci. portable xray obtained. pt encouraged to cough. pt made NPO with speech consult. pt did not exhibit any
swallowing dysfunction before this event and denies ever having any swallowing dysfunction. pt now feels much better and is resting comfortably on 6L 99% with call rivera within reach .
[2025-01-27] MEDS: DUONEB 3 ML INH (21:37)
[2025-01-27 21:39] LABS: Glucose - Point of Care 181 mg/dl (70-99)
[2025-01-28] VITALS (7 sets, daily range): BP systolic 95–119; BP diastolic 47–67; BMI 24.3
[2025-01-28 04:10] LABS: Hematocrit 29.8 % (37.0-47.0); Hemoglobin 9.9 g/dL (12.0-16.0); Mean Corp Hgb Conc. 33.2 g/dL (33.0-37.0); Mean Corpuscular Hgb 31.5 pg (27.0-31.0); Mean Corpuscular Volume 94.9 fL (81.0-99.0); Mean Platelet Volume 10.7 fL (7.4-10.4); Platelet Count 85 10^3/uL (130-400); Red Blood Cell Count 3.14 10^6/uL (4.20-5.40); Red Cell Dist. Width 14.7 % (11.5-14.5); White Blood Cell Count 12.5 10^3/uL (4.8-10.8)
[2025-01-28 04:22] LABS: Blood Urea Nitrogen 36 mg/dl (7-17); Calcium 7.8 mg/dl (8.4-10.2); Carbon Dioxide 25 mmol/L (22-30); Chloride 105 mmol/L (98-107); Estimated Creatinine Clearance 60 ml/min; Glucose 173 mg/dl (70-99); Magnesium 2.5 mg/dl (1.6-2.3); Potassium 4.8 mmol/L (3.5-5.1); Sodium 132 mmol/L (135-145); eGFR > 60.00
--- NOTE | 2025-01-28 04:30 | PTCARENOTE ---
labs drawn and sent, pt resting comfortably satting 99 percent on 4LNC. no change in patient assessment .
[2025-01-28] MEDS: TYLENOL PO (06:59)
--- NOTE | 2025-01-28 07:36 | W.PN.CT ---
Addendum entered and electronically signed by Con العراقي MD 01/28/25 09:44:
I saw and examined the patient.
The PA's note was reviewed and I agree with the note.
Comment:
POD#3
Pt w/ questionable aspiration yesterday while gulping water w/ coughing and hypoxemia - previously tolerating PO w/o issue. SpO2 recovered quickly, back to 2L O2 NC this AM. CXR clear. Afebrile. WBC 12.5 (from 14.3)
- NPO pending formal S&S eval - I anticipate she will pass
- OOB/IS/ambulate
Original Note:
Today's Communication / Plan
-
-pod #3
-had an episode of aspiration on water with hypoxia last night 01/27 after taking pills. Pt was started on NRB with pOx improving from 70s to 99%. Got Duoneb tx, IS, pulmonary toilet and significantly improved. POx was 98% on 6L after the episode.
CXR without acute changes. In the morning, she is looking well with pOx 97% on 2L. Afebrile overnight.
-pt is currently NPO until speech eval.
-follow platelets - 85K today (95K on 01/27)
-follow daily CXR, monitor for signs of pna
-encourage IS, pulmonary toilet
Assessment / Plan
-
- Aortic valve stenosis with bicuspid valve morphology and multiple episodes of syncope- s/p Surgical aortic valve replacement [23 mm bioprosthesis Martínez Inspiris Resilia]; Left atrial appendage exclusion [35 mm device] by Dr. Kaminski on 01/25/25,
pod#3
- Type 0 bicuspid aortic valve with heavily calcification
- Multiple episodes of syncope, witnessed
- Type 1 diabetes mellitus
- Hyperlipidemia
- Hypertension
- History of melanoma
- Severe low-flow low gradient aortic valve stenosis
- Chronic diastolic dysfunction of the LV
- Colonize, E. coli and urinary tract infection
- Depression/anxiety
- Acute postop blood loss anemia- stable without transfusion
- Acute postop thrombocytopenia
- Acute postop atelectasis
- Acute postop respiratory and metabolic acidosis
- Acute postop hypovolemia with subsequent hypervolemia
- Acute postop water aspiration 01/27
Discussed patient care with: Nursing and Care Team
Subjective
-
Date of Service: January 28, 2025
Objective Data
-
Lab Results
01/28/25 03:45
01/28/25 03:45
PT 20.2 Sec (11.4-14.6) H 01/25/25 10:21
INR 1.70 01/25/25 10:21
APTT 38.7 Sec (23.4-35.0) H 01/25/25 10:21
Vital Signs
Vital Signs
Temp Pulse Resp BP Pulse Ox
98.6 F 56 13 119/52 99
01/28/25 04:00 01/28/25 05:00 01/28/25 04:00 01/28/25 04:00 01/28/25 05:00
CT Intake/Output/Weight
01/27/25 01/28/25 01/28/25
18:59 06:59 18:59
Intake Total 36.9 / 136.9 100 / 136.9
Output Total 60 / 60
Balance -23.1 / 76.9 100 / 76.9
SaO2: 99
--- NOTE | 2025-01-28 08:00 | PTCARENOTE ---
assumed care of patient from prev RN. received pt laying in bed, AAox3. VSS. SR HR 60s. Lungs clear. 96%RA. +bs. BRP. sternum ANKITA, CT sites CDI. R IJ cordis and PIV intact. will continue to monitor.
[2025-01-28] MEDS: THERAGRAN 1 TABLET PO (09:11)
[2025-01-28] MEDS: LIDOCAINE 4% PATCH 1 PATCH TOPICAL (09:11)
[2025-01-28] MEDS: NEURONTIN 100 MG PO ×2 (09:11→21:06)
[2025-01-28] MEDS: BACTROBAN 2% OINTMENT 1 APPLIC NASAL ×2 (09:11→19:54)
[2025-01-28] MEDS: WELLBUTRIN SR (12 hour sustained release) 150 MG PO ×2 (09:12→19:54)
[2025-01-28] MEDS: LIPITOR 20 MG PO (09:13)
[2025-01-28] MEDS: VISBIOME 1 CAP PO (09:13)
[2025-01-28] MEDS: ZOLOFT 200 MG PO (09:13)
[2025-01-28] MEDS: ZESTRIL 5 MG PO (09:14)
[2025-01-28] MEDS: VITAMIN B1 100 MG PO (09:14)
[2025-01-28] MEDS: LOW STRENGTH ASPIRIN 81 MG PO (09:14)
[2025-01-28] MEDS: SENOKOT-S 1 TABLET PO ×2 (09:14→19:54)
[2025-01-28] MEDS: PROTONIX 40 MG PO (09:14)
[2025-01-28] MEDS: PATIENT'S OWN INSULIN PUMP SC ×2 (12:46→22:11)
[2025-01-28] MEDS: NSS IV (12:48)
--- NOTE | 2025-01-28 13:00 | PTCARENOTE ---
cleared by speech for thins but small sips. pills with applesauce. no additional issues with swallowing today.
--- NOTE | 2025-01-28 13:08 | W.PN.CD ---
Today's Communication / Plan
-
ASA 81mg daily
trend tele
resume home propranolol at lower dose tomorrow if rhythm stable
Impression / Plan
-
64 y/o female (patient of Dr. Ruelas) with hypertension, dyslipidemia, type I DM with insulin pump, hx syncope, bicuspid aortic valve with severe who is now s/p bio AVR.
Bicuspid aortic valve, severe aortic stenosis:
-s/p bio AVR, left atrial appendage exclusion, Dr. Kaminski 01/25/25
-JAH: EF 70%
-ASA 81mg daily
-trend tele
Rhythm
-sinus bradycardia
-home propranolol on hold (for tremor)
HTN:
-stable on lisinopril 5mg daily
Dyslipidemia:
-continue atorvastatin 20mg
Physical Exam
Vital Signs/Labs
Vital Signs
Temp Pulse Resp BP Pulse Ox
97.8 F 64 18 117/67 95
01/28/25 12:00 01/28/25 12:05 01/28/25 12:00 01/28/25 09:18 01/28/25 12:00
01/27/25 01/28/25 01/29/25
06:59 06:59 06:59
Actual Weight 54.7 kg 58.2 kg
01/28/25 03:45
01/28/25 03:45
PT 20.2 Sec (11.4-14.6) H 01/25/25 10:21
INR 1.70 01/25/25 10:21
APTT 38.7 Sec (23.4-35.0) H 01/25/25 10:21
Magnesium 2.5 mg/dl (1.6-2.3) H 01/28/25 03:45
Physical Exam
Constitutional: No acute distress and Comfortable
EENT: Moist mucous membranes
Cardiovascular: Rhythm & rate is regular, Pedal edema is absent, JVD pressure is normal and Systolic murmur absent
Respiratory: Respiratory effort normal and Lungs clear to auscul.
Neuro/Psych: AO x 3
Data Reviewed
-
Date of Service: January 28, 2025
EKG: Other (SB 50s)
Labs: Labs Reviewed by me
--- NOTE | 2025-01-28 13:27 | PTOTSP ---
ST Acute Care Evaluation
Pt currently presents with clinical signs of suspected mild pharyngeal dysphagia characterized by occasional immediate and delayed coughing following ingestion of thin liquids and hard dry solids.
Recommendations:
- Initiate PO diet of regular solids and thin liquids via small single sips only with meds whole in puree.
- Aspiration precautions: HOB upright for all PO intake; small bites/sips; small single sips only; slow intake rate.
- MACHINE SANDER to f/u re: diet tolerance, use of compensatory strategies, and to determine if pt would benefit from an instrumental swallow study.
[2025-01-28 13:46] LABS: Glucose - Point of Care 112 mg/dl (70-99)
[2025-01-28] MEDS: FERRLECIT 110 MG IV (14:04)
--- NOTE | 2025-01-28 15:28 | CHAP ---
Edel continues in good spirits, grateful for her sips of liquid. Emotional and spiritual support provided.
[2025-01-28] MEDS: PATIENT'S OWN INSULIN PUMP 2.92 UNITS SC (16:08)
[2025-01-28] MEDS: TYLENOL 1000 MG PO ×2 (16:09→21:06)
[2025-01-28] MEDS: NEURONTIN PO (16:09)
[2025-01-28 18:57] LABS: Glucose - Point of Care 291 mg/dl (70-99)
[2025-01-28] MEDS: PATIENT'S OWN INSULIN PUMP 3.5 UNITS SC (19:01)
--- NOTE | 2025-01-28 21:00 | PTCARENOTE ---
Assumed care of pt from dayshift RN. Walking rounds completed. Pt AAOx3. SR on the tele monitor. HR 70s. BP stable. Temporary A/V wires insulated. Palpable pulses throughout. Pt on RA. POX 96%. Lung sounds diminished B/L in the bases. Deep breathing
and IS encouraged. Abdomen soft/nontender. +BSx4. Pt voiding w/o issue. Pt taking pills w/ apple sauce and tolerating small sips of water sitting upright. Sternal incision approximated and ANKITA. PIV x1 intact. See worklist for full nursing assessment
and interventions. Call rivera within reach.
[2025-01-28] MEDS: TOPAMAX 25 MG PO (21:06)
[2025-01-28 22:12] LABS: Glucose - Point of Care 195 mg/dl (70-99)
[2025-01-29] VITALS (7 sets, daily range): BP systolic 111–169; BP diastolic 60–73; PULSE 87; O2SAT 94–100; BMI 24.0
--- NOTE | 2025-01-29 00:22 | W.PN.CT ---
Today's Communication / Plan
-
Concern for episode of aspiration = passed speech eval, no residual effects�
Continue Amiodarone, ASA, lipitor, gabapentin, lisinopril, metoprolol, protonix, zoloft�
OOB/ IS/ ambulate�
Monitoring PLTs 99K today, 85K on 01/08�
DC planning�
Assessment / Plan
-
- Aortic valve stenosis with bicuspid valve morphology and multiple episodes of syncope- s/p Surgical aortic valve replacement [23 mm bioprosthesis Martínez Inspiris Resilia]; Left atrial appendage exclusion [35 mm device] by Dr. Kaminski on 01/25/25,
pod#4
- Type 0 bicuspid aortic valve with heavily calcification
- Multiple episodes of syncope, witnessed
- Type 1 diabetes mellitus
- Hyperlipidemia
- Hypertension
- History of melanoma
- Severe low-flow low gradient aortic valve stenosis
- Chronic diastolic dysfunction of the LV
- Colonize, E. coli and urinary tract infection
- Depression/anxiety
- Acute postop blood loss anemia- stable without transfusion
- Acute postop thrombocytopenia
- Acute postop atelectasis
- Acute postop respiratory and metabolic acidosis
- Acute postop hypovolemia with subsequent hypervolemia
- Acute postop water aspiration 01/27
Subjective
-
Date of Service: January 29, 2025
Objective Data
-
PT 20.2 Sec (11.4-14.6) H 01/25/25 10:21
INR 1.70 01/25/25 10:21
APTT 38.7 Sec (23.4-35.0) H 01/25/25 10:21
Vital Signs
Vital Signs
Temp Pulse Resp BP Pulse Ox
98 F 71 18 111/60 94
01/29/25 00:07 01/29/25 00:07 01/29/25 00:07 01/29/25 00:07 01/29/25 00:07
CT Intake/Output/Weight
01/28/25 01/28/25 01/29/25
06:59 18:59 06:59
Intake Total 100 / 136.9 280 / 280
Balance 100 / 76.9 280 / 280
SaO2: 94
Physical Exam
-
General: Awake
Cardiovascular: Regular rate & rhythm
Respiratory: Clear and Equal
Sternum: Stable
Incision: Clean, Dry and Intact
Extremities: No Edema
--- NOTE | 2025-01-29 00:23 | PTCARENOTE ---
No change in assessment. Pt is SR on the tele monitor. HR 70s. BP stable. POX 94% on RA. Pt w/ own insulin pump. No c/o pain at this time. Call rivera within reach.
--- NOTE | 2025-01-29 04:47 | PTCARENOTE ---
No acute changes in assessment. Pt remains SR on the tele monitor. HR 70s. BP stable. Pt is 96% on RA. Labs drawn and sent. Call rivera within reach.
[2025-01-29 04:53] LABS: Hematocrit 31.4 % (37.0-47.0); Hemoglobin 10.4 g/dL (12.0-16.0); Mean Corp Hgb Conc. 33.1 g/dL (33.0-37.0); Mean Corpuscular Hgb 31.5 pg (27.0-31.0); Mean Corpuscular Volume 95.2 fL (81.0-99.0); Mean Platelet Volume 10.6 fL (7.4-10.4); Platelet Count 99 10^3/uL (130-400); Red Cell Dist. Width 14.8 % (11.5-14.5); White Blood Cell Count 8.2 10^3/uL (4.8-10.8)
[2025-01-29 05:14] LABS: Blood Urea Nitrogen 21 mg/dl (7-17); Calcium 8.3 mg/dl (8.4-10.2); Carbon Dioxide 26 mmol/L (22-30); Chloride 109 mmol/L (98-107); Estimated Creatinine Clearance 71 ml/min; Glucose 164 mg/dl (70-99); Magnesium 2.2 mg/dl (1.6-2.3); Sodium 138 mmol/L (135-145); eGFR > 60.00
[2025-01-29] MEDS: TYLENOL 1000 MG PO ×2 (06:29→13:10)
[2025-01-29 07:33] LABS: Glucose - Point of Care 162 mg/dl (70-99)
[2025-01-29] MEDS: LOW STRENGTH ASPIRIN 81 MG PO (08:05)
[2025-01-29] MEDS: NEURONTIN 100 MG PO ×2 (08:05→15:36)
[2025-01-29] MEDS: VITAMIN B1 100 MG PO (08:05)
[2025-01-29] MEDS: WELLBUTRIN SR (12 hour sustained release) 150 MG PO (08:05)
[2025-01-29] MEDS: LIPITOR 20 MG PO (08:05)
[2025-01-29] MEDS: BACTROBAN 2% OINTMENT 1 APPLIC NASAL (08:05)
[2025-01-29] MEDS: PROTONIX 40 MG PO (08:05)
[2025-01-29] MEDS: ZOLOFT 200 MG PO (08:05)
[2025-01-29] MEDS: THERAGRAN 1 TABLET PO (08:05)
[2025-01-29] MEDS: ZESTRIL 5 MG PO ×2 (08:05→11:00)
[2025-01-29] MEDS: SENOKOT-S 1 TABLET PO (08:05)
[2025-01-29] MEDS: VISBIOME 1 CAP PO (08:05)
[2025-01-29] MEDS: LIDOCAINE 4% PATCH TOPICAL (08:06)
[2025-01-29] MEDS: PATIENT'S OWN INSULIN PUMP 3.2 UNITS SC (08:12)
--- NOTE | 2025-01-29 08:47 | PN.DE.MGMTRT ---
Insulin Management
- -
01/29/2025: Diabetes Management follow up for insulin pump
Patient admitted today for aortic valve replacement. PMH: HTN, Hypercholesterolemia, UTI's, syncope, Aortic Stenosis, Aortic valve with restricted leaflet motion. T1DM and Psychiatric hx including Anxiety, Depression and intentional OD on Lexapro
07/2015. Currently uses T-slim X2 insulin pump with control IQ, Humalog insulin, Auto soft XC infusion set with Dexcom G6. She routinely follows up with [facility] Dr. Perez. A1C 6.3%, Cr 0.6, eGFR 60.
Pt is awake, alert, oriented, pleasant and calm, offers no complaints, able to discuss diabetes care. POD # 4, doing well.
Pt was able to switch back to transition off insulin drip to her insulin pump once solid diet was started
Pump settings are as follows:
Basal ICR ICF Target
6am- 11am 0.9 1:14 1:55 110
11am - 1pm 1 1:12 1:55 110
1pm- 3pm 0.875 1:12 1:55 110
3pm- 8pm 0.6 1:12 1:55 110
8pm -10pm 0.6 1:12 1:75 110
10pm-12am 0.2 1:16 1:75 110
12am- 3am 0.3 1:16 1:75 110
3am- 6am 0.7 1:16 1:55 110
24 hour basal total 15.85 units
Glucose has been stable, had 1 episode of elevation at dinner time yesterday up to 291, FBG was 162 POC this AM.
Pt is able to manage her insulin pump independently w/o difficulties. She is eager for discharge home today.
Will make no change to current pump settings. Will cont to follow her while she remains in the hospital
Diabetes History
- -
Type of Diabetes: 1
Pre-Admission Diabetes Regimen
01/29/25
04:35
Creatinine 0.6
Lab Results
Hemoglobin A1c 6.3 % (4.0-5.6) H 01/19/25 08:41
Insulin Pump Settings
IP Diabetes Regimen
01/28/25 01/28/25 01/28/25
13:45 18:55 22:10
Glucose
POC Glucose 112 H 291 H 195 H
01/29/25 01/29/25
04:35 07:29
Glucose 164 H
POC Glucose 162 H
Patient Education
--- NOTE | 2025-01-29 08:49 | PTCARENOTE ---
Received pt from mold shifter RN; pt AAOX3 and resting comfortably in chair; NSR on monitor and VSS; PIV x1 patent; lungs diminished; IS to 1000; positive bowel sounds; pt voiding yellow urine; no edema noted; palpable pulses throughout; all surgical
sites C/D/I; see nursing documentation for further details.
--- NOTE | 2025-01-29 09:11 | PTCARENOTE ---
A/V epicardial wires cut by TAMICA.
--- NOTE | 2025-01-29 09:25 | W.PN.CD ---
Addendum entered and electronically signed by Dakotah Espinal MD 01/29/25 14:51:
Patient seen and examined in collaboration with RN MED SURG; agree with below.
- 64-year-old female who underwent bioprosthetic AVR replacement on 01/25/2025.
- Clinically stable from a cardiac standpoint; no events on telemetry.
- Recommend propranolol 60 mg daily.
- Continue other cardiac medications.
- Outpatient follow-up with Cardiology (Dr. Ruelas).
Addendum entered and electronically signed by KARLENE Dupont 01/29/25 10:19:
Correction to below, metoprolol on hold. She is normally on propranolol 160 mg every evening for tremors pre-op outpatient.
Original Note:
Today's Communication / Plan
-
There was concern for aspiration, passed speech evaluation
DC planning per CT surgery
Continue ambulation
Impression / Plan
-
I/P: 64F with hypertension, dyslipidemia, type I DM with insulin pump, hx syncope, bicuspid aortic valve with severe who is now s/p bio AVR.
Outpatient lawn sprinkler servicer: Dr. Ruelas
Bicuspid aortic valve, severe aortic stenosis s/p 23mm bio AVR, left atrial appendage exclusion, Dr. Kaminski 01/25/25
-JAH: EF 70%, MG 9mmHg
-ASA 81mg daily
-Telemetry stable
-Plt 99, H/H 10.4/31.4
Rhythm
-Home propranolol on hold (for tremor), on metoprolol
HTN:
-stable on lisinopril 5mg daily
Dyslipidemia, continue atorvastatin 20mg
Type 1 diabetes mellitus, insulin pump
Physical Exam
Vital Signs/Labs
Vital Signs
Temp Pulse Resp BP Pulse Ox
97.6 F 72 18 150/73 96
01/29/25 08:00 01/29/25 08:00 01/29/25 08:00 01/29/25 07:31 01/29/25 08:54
01/28/25 01/29/25 01/30/25
06:59 06:59 06:59
Actual Weight 57.5 kg
01/29/25 04:35
01/29/25 04:35
PT 20.2 Sec (11.4-14.6) H 01/25/25 10:21
INR 1.70 01/25/25 10:21
APTT 38.7 Sec (23.4-35.0) H 01/25/25 10:21
Magnesium 2.2 mg/dl (1.6-2.3) 01/29/25 04:35
Physical Exam
Constitutional: No acute distress and Comfortable
EENT: Anicteric and Moist mucous membranes
Cardiovascular: Rhythm & rate is regular, Pedal edema is absent and S1S2 is normal
Respiratory: Respiratory effort normal and Lungs clear to auscul.
GI: Soft, Distention absent, Flat, Non tender and Normal bowel sounds
Neuro/Psych: AO x 3
Other: Skin (warm and dry)
Data Reviewed
-
Date of Service: January 29, 2025
[2025-01-29] MEDS: NSS IV (09:26)
--- NOTE | 2025-01-29 10:20 | W.DCSUMMARY ---
Discharge Summary
Discharge Data
Date of Admission: 01/25/25
Date of Discharge: 01/29/25
-
Pending Results: No
Hospital Course
Primary care physician: Larissa Smith
Outpatient mine engineer: Nidia Ruelas
Inpatient consultants: [facility] cardiology, pulmonary lacquer shader
Procedures:
1. Aortic valve placement, left atrial appendage clip
Primary Diagnosis:
1. Aortic valve stenosis with bicuspid valve morphology and multiple episodes of syncope
Secondary Diagnoses:
1. Type 1 diabetes mellitus
2. Hyperlipidemia
3. Hypertension
4. History of melanoma
5. Chronic diastolic dysfunction of the LV
9. Pre-op (outpatient) E. coli urinary tract infection-treated
10. Depression/anxiety
12. Acute postop blood loss anemia- stable without transfusion
13. Acute postop thrombocytopenia
14. Acute postop respiratory and metabolic acidosis
15. Acute postop hypovolemia with subsequent hypervolemia
16. Acute postop water aspiration 01/27
17. sinus bradycardia
18. essential hand tremor
HPI: 64-year-old female electively admitted on 01/25/2025 for aortic valve replacement with bicuspid valve with severe aortic stenosis.
Hospital course: Patient was brought to the operating room and underwent an aortic valve replacement #23 mm Inspiris Resilia and left atrial appendage exclusion with #[address] Aristeo Kaminski. Patient received no intraoperative blood products
and returned to CVICU on Levophed, Precedex, and insulin. Patient received 1 L of lactated Ringer's for labile blood pressure and required low-dose Levophed for blood pressure support. Patient was extubated 1745 the day of surgery. Patient was
bradycardic and required atrial pacing. Cardiac index improved from 1.3-2.13. On postoperative day 1, patient was delined and amiodarone/beta-susan continued to be held. Heart rate improved to 50-60s and wires were to backup pacing. Lisinopril
low-dose was resumed for hypertension. Insulin pump was resumed. On postop day #2, chest tubes were discontinued. On postop day #3, patient had questionable aspiration of water overnight and was evaluated and cleared by speech pathology. Patient
ambulated in halls independently and without difficulty. Postoperative day #4, temporary atrial and ventricular wires were clipped at skin level. Lisinopril dose was increased to 10 mg daily for hypertension. Beta-susan was resumed (low dose
60mg propanolol) per cardiology as no bradycardic episodes past 48 hours (maintaining HR 70s). Patient deemed stable for discharge home and will be followed by transitional care nurse team
Home medication changes:
Lisinopril dose decreased from 20 to 10 mg daily on discharge
Propranolol resumed at low dose 60mg HS
Discharge Plan
-
Patient Disposition: Home (Routine Discharge)
Discharge Diagnosis/Procedures: aortic valve replacement, left atrial appendage clip
Condition: Good
Diet: Low Cholesterol and Low Sodium
Activity: No strenuous activity
Driving Restrictions: Not until seen by your Dr
Bathing Restrictions: OK to Shower
Other Services: Cardiac Rehab
Specialty Instructions: Weigh Daily- Call MD for wt gain/loss 3 lbs overnight/5 lbs in 1 week
Referrals:
CT Transitional Care Nurse [Outside]
Referral Note:
The Cardiothoracic Transitional Care Nurse will call you to set up a visit in 1-2 days.
[facility]. Cardiac Rehab [Outside] - 03/09/25 1:00 pm
Referral Note: Cardiac Rehab Orientation appointment is on 03/09/25 at 1:00 pm
The Cardiac Rehab gym is located on the first floor of the [facility].
Larissa Smith MD [Family Provider, Internal Medicine]
Machelle Robb NP [Specified Professional Personl, Cardiology] - 03/12/25 11:00 am
Malka Yarbrough CRNP [Specified Professional Personl, Cardiac Surgery] - 02/26/25 2:15 pm
Prescriptions:
New
gabapentin 100 mg Capsule
100 mg PO TID Qty: 30 0RF
oxycodone 5 mg Tablet
5 mg PO Q4HPRN PRN (Reason: severe pain) Qty: 10 0RF
acetaminophen 325 mg Tablet
650 mg PO Q4HPRN PRN (Reason: mild pain,headache,temp >101F ) Qty: 0 0RF
aspirin 81 mg Tablet,Chewable
81 mg PO DAILY Qty: 0 0RF
lisinopril 5 mg Tablet
10 mg PO DAILY Qty: 30 2RF
propranolol 60 mg Capsule,Extended Release 24 Hr
60 mg PO HS Qty: 30 2RF
furosemide [Lasix] 20 mg tablet
20 mg PO DAILYPRN PRN (Reason: for weight gain >3lbs overnight or 5 lbs in 1 week) Qty: 5 0RF
Continued
sertraline 100 MG tablet
200 mg PO DAILY
Probiotic 3 billion cell Capsule
3,000 mmu cells PO DAILY
trazodone 50 MG tablet
50 mg PO HS
insulin lispro 100 unit/mL solution
1 unit SC DIRECTED Qty: 10 0RF
Patient Comments:
Insulin pump removed
topiramate 25 mg Tablet
25 mg PO HS
thiamine mononitrate (vit B1) 100 mg Tablet
100 mg PO DAILY
multivitamin Tablet
1 tab PO DAILY Qty: 0 0RF
bupropion HCl [Wellbutrin SR] 150 mg Tablet Sustained-Release 12 Hr
150 mg PO BID Qty: 0 0RF
atorvastatin 20 mg Tablet
20 mg PO DAILY Qty: 0 0RF
Discontinued
propranolol 160 mg capsule,extended release 24 hr
160 mg PO HS
lisinopril 20 mg Tablet
20 mg PO DAILY Qty: 0 0RF
Discharge Orders:
Discharge Patient (As Directed); Ordered 01/29/25
Ordered By: Samaria Buchanan
Care Plan Goals
Care Plan Goals:
Problem: Readiness for enhanced knowledge related to diagnosis and treatment plan
Goal: Understand your diagnosis and treatment plan needs, including medications if applicable.
Instructions: Know your diagnosis, underlying causes and treatment plan options, including medications if applicable. Consult with your health care team to learn about your diagnosis and treatment plan, including medications if applicable.
Discharge Date and Time
Print Language: ALGERIAN
--- NOTE | 2025-01-29 12:07 | CM ---
Reviewed chart. Met with Mrs. Cordero to review discharge plans. She states she is feeling well and maybe able to go home soon. She states prior to admission she resides with her spouse in a one story home with three steps to enter. She states
prior to admission she was independent with ambulation and adls. She ambulated 300 feet today. She states he spouse will be home to assist in her care if needed. We reviewed a home visit by the Transitional Care Nurse. She is agreeable to a home
visit. Medical work-up in progess. The discharge plan is to return with her spouse in a home visit by the Transitional Care Nurse when medically stable.
[2025-01-29 12:10] LABS: Glucose - Point of Care 147 mg/dl (70-99)
--- NOTE | 2025-01-29 12:13 | PTCARENOTE ---
NSR on monitor and VSS: NSR on monitor and VSS; pt ambulating in hallway and room with RN; assessment unchanged.
[2025-01-29] MEDS: PATIENT'S OWN INSULIN PUMP 1.76 UNITS SC (13:31)
--- NOTE | 2025-01-29 14:42 | PTCARENOTE ---
Pt showered self with CHG soap; pt also dressed self with minimal assistance; equipment monitor phototypesetting reapplied.
[2025-01-29] MEDS: PREVNAR 20 0.5 ML IM (15:36)
--- NOTE | 2025-01-29 16:39 | PTCARENOTE ---
IV and syrup maker removed; discharge paperwork gone over with pt and ; all questions answered; pt transfer to car via wheelchair.
== END 2025-01-29 16:50 | disposition home or self-care (01) | DRG 220 ==
LOC: CVICU 05:18
PROVIDERS: Anesthesiology; Physician Assistant Medical; ADMITTING PHYSICIAN Thoracic Surgery (Cardiothoracic Vascular Surgery); CONSULT PHYSICIAN Internal Medicine; CONSULT PHYSICIAN Internal Medicine Critical Care Medicine; FAMILY PHYSICIAN Emergency Medicine
PROC: 5A1221Z Performance of Cardiac Output, Continuous (ICD-10-PCS; 2025-01-25)
PROC: B24BZZ4 Ultrasonography of Heart with Aorta, Transesophageal (ICD-10-PCS; 2025-01-25)
PROC: 02L70CK Occlusion of Left Atrial Appendage with Extraluminal Device, Open Approach (ICD-10-PCS; 2025-01-25)
PROC: 02RF08Z Replacement of Aortic Valve with Zooplastic Tissue, Open Approach (ICD-10-PCS; 2025-01-25)
PROC: 3E0234Z Introduction of Serum, Toxoid and Vaccine into Muscle, Percutaneous Approach (ICD-10-PCS; 2025-01-29)
DX: I35.0 Nonrheumatic aortic (valve) stenosis (principal); D62 Acute posthemorrhagic anemia; I50.32 Chronic diastolic (congestive) heart failure; N39.0 Urinary tract infection, site not specified; E87.4 Mixed disorder of acid-base balance; J98.11 Atelectasis; D69.59 Other secondary thrombocytopenia; E86.1 Hypovolemia; E87.70 Fluid overload, unspecified; T18.9XXA Foreign body of alimentary tract, part unspecified, initial encounter; W44.F3XA Food entering into or through a natural orifice, initial encounter; R09.89 Other specified symptoms and signs involving the circulatory and respiratory systems; E10.9 Type 1 diabetes mellitus without complications; E78.5 Hyperlipidemia, unspecified; I11.0 Hypertensive heart disease with heart failure; F32.A Depression, unspecified; F41.9 Anxiety disorder, unspecified; R00.1 Bradycardia, unspecified; B96.20 Unspecified Escherichia coli [E. coli] as the cause of diseases classified elsewhere; I25.10 Atherosclerotic heart disease of native coronary artery without angina pectoris; G25.0 Essential tremor; R91.1 Solitary pulmonary nodule; J43.2 Centrilobular emphysema; Z96.41 Presence of insulin pump (external) (internal); Z23 Encounter for immunization; Z87.891 Personal history of nicotine dependence; Z79.4 Long term (current) use of insulin
CPT/HCPCS: 88305; 88311; 36415; 71045; 71046; 80048; 80053; 81003; 81015; 82248; 82330; 82565; 82805; 82810; 82947; 82962; 83036; 83735; 84132; 84302; 84520; 85014; 85018; 85025; 85027; 85049; 85610; 85730; 86803; 86850; 86900; 86901; 86920; 87070; 87077; 87086; 87186; 92526; 92610; 93005; 93312; 93320; 93325; 94002; 94640; 94660; 99406; J2916; P9045

== ENCOUNTER → 2025-03-23 14:49 | Outpatient (REF) | payer BC, SELFPAY | LOC: RCS 14:49 | PROVIDERS: ATTENDING PHYSICIAN Nurse Practitioner; FAMILY PHYSICIAN Emergency Medicine | DX: Z95.2 Presence of prosthetic heart valve (principal); R60.0 Localized edema; E78.00 Pure hypercholesterolemia, unspecified; I25.10 Atherosclerotic heart disease of native coronary artery without angina pectoris | CPT/HCPCS: 93306 ==

== ENCOUNTER 2025-03-30 14:03 | Outpatient (RCR) | payer BC, MEDICARE, SELFPAY ==
[2025-03-09 14:28] LABS: Glucose - Point of Care 138 mg/dl (70-99)
[2025-03-09 14:56] LABS: Glucose - Point of Care 136 mg/dl (70-99)
[2025-03-12 13:14] LABS: Glucose - Point of Care 112 mg/dl (70-99)
[2025-03-12 13:56] LABS: Glucose - Point of Care 89 mg/dl (70-99)
[2025-03-12 14:17] LABS: Glucose - Point of Care 95 mg/dl (70-99)
[2025-03-12 14:26] LABS: Glucose - Point of Care 108 mg/dl (70-99)
[2025-03-14 13:16] LABS: Glucose - Point of Care 61 mg/dl (70-99)
[2025-03-14 13:41] LABS: Glucose - Point of Care 90 mg/dl (70-99)
[2025-03-16 13:17] LABS: Glucose - Point of Care 173 mg/dl (70-99)
[2025-03-16 14:18] LABS: Glucose - Point of Care 180 mg/dl (70-99)
[2025-03-19 13:11] LABS: Glucose - Point of Care 202 mg/dl (70-99)
[2025-03-19 14:03] LABS: Glucose - Point of Care 226 mg/dl (70-99)
[2025-03-21 13:14] LABS: Glucose - Point of Care 182 mg/dl (70-99)
[2025-03-21 14:02] LABS: Glucose - Point of Care 143 mg/dl (70-99)
[2025-03-23 13:13] LABS: Glucose - Point of Care 109 mg/dl (70-99)
[2025-03-23 13:59] LABS: Glucose - Point of Care 64 mg/dl (70-99)
[2025-03-23 14:12] LABS: Glucose - Point of Care 67 mg/dl (70-99)
[2025-03-23 14:23] LABS: Glucose - Point of Care 69 mg/dl (70-99)
[2025-03-23 14:38] LABS: Glucose - Point of Care 110 mg/dl (70-99)
[2025-03-28 13:19] LABS: Glucose - Point of Care 97 mg/dl (70-99)
[2025-03-28 13:30] LABS: Glucose - Point of Care 84 mg/dl (70-99)
[2025-03-30 13:06] LABS: Glucose - Point of Care 207 mg/dl (70-99)
[2025-03-30 14:09] LABS: Glucose - Point of Care 173 mg/dl (70-99)
== END 2025-03-30 23:59 | disposition home or self-care (01) ==
LOC: CRHB 14:03
PROVIDERS: ATTENDING PHYSICIAN Internal Medicine Cardiovascular Disease
DX: Z95.2 Presence of prosthetic heart valve (principal)
CPT/HCPCS: 82962; G0422; G0423

== ENCOUNTER 2025-04-16 14:32 | Outpatient (RCR) | payer BC, SELFPAY | END 2025-04-16 23:59 | disposition home or self-care (01) | LOC: CRHB 14:32 | PROVIDERS: ATTENDING PHYSICIAN Internal Medicine Cardiovascular Disease | DX: Z95.2 Presence of prosthetic heart valve (principal) | CPT/HCPCS: G0422; G0423 ==

== ENCOUNTER → 2025-04-19 12:49 | Outpatient (REF) | payer MEDICARE, SELFPAY | LOC: RAD 12:49 | PROVIDERS: ATTENDING PHYSICIAN Family Medicine | DX: M25.531 Pain in right wrist (principal) | CPT/HCPCS: 73100 ==

== ENCOUNTER 2025-04-23 13:14 | Outpatient (RCR) | payer MEDICARE, SELFPAY ==
[2025-04-23 13:19] LABS: Glucose - Point of Care 175 mg/dl (70-99)
[2025-04-23 14:17] LABS: Glucose - Point of Care 220 mg/dl (70-99)
== END 2025-04-23 23:59 | disposition home or self-care (01) ==
LOC: CRHB 13:14
PROVIDERS: ATTENDING PHYSICIAN Internal Medicine Cardiovascular Disease; FAMILY PHYSICIAN Emergency Medicine
DX: Z95.2 Presence of prosthetic heart valve (principal)
CPT/HCPCS: 82962; G0422; G0423